=== PATIENT | male | born 1945 | race American Indian/Alaskan Native ===

== ENCOUNTER 2021-03-07 11:38 | Inpatient (IN) | payer MEDICARE, BC ==
[2021-03-07 12:32] LABS: Basophils % (Auto) 0.5 % (0.0-1.8); Eosinophils # (Auto) 0.8 K/mm3 (0.0-0.4); Eosinophils % (Auto) 10.5 % (0.0-4.3); Hematocrit 36.3 % (35.5-45.6); Hemoglobin 11.9 gm/dl (11.8-15.2); Lymphocytes # (Auto) 2.2 K/mm3 (1.2-5.4); Lymphocytes % (Auto) 27.9 % (13.4-35.0); Mean Corpuscular HGB Conc 33 % (32-34); Mean Corpuscular Volume 76 fl (84-94); Monocytes # (Auto) 0.8 K/mm3 (0.0-0.8); Monocytes % (Auto) 9.9 % (0.0-7.3); Platelet Count 367 K/mm3 (140-440)
[2021-03-07 12:33] LABS: Red Cell Distribution Width 21.3 % (13.2-15.2)
[2021-03-07 12:50] LABS: Alanine Aminotransferase 27 units/L (7-56); Albumin 2.8 g/dL (3.9-5); BUN/Creatinine Ratio 55; Blood Urea Nitrogen 44 mg/dL (9-20); Calcium 9.3 mg/dL (8.4-10.2); Hemolysis Index 2
--- NOTE | 2021-03-07 12:50 | XRay Report ---
CHEST 1 VIEW INDICATION: ams. COMPARISON: None. FINDINGS: Support devices: None. Heart: Normal. Lungs/Pleura: No acute pulmonary or pleural findings. IMPRESSION: 1. No acute findings. Signer Name: Cj Pascal MD Signed: 03/07/2021 12:46 PM Workstation Name: [id number]
[2021-03-07 13:01] LABS: Chol/HDL Ratio 2.73 %; HDL Cholesterol 26 mg/dL (40-59); LDL Cholesterol,Direct 36 mg/dL (50-130)
[2021-03-07 13:05] LABS: INR 0.99 (0.87-1.13)
[2021-03-07 13:06] LABS: Partial Thromboplastin Time 33.8 Sec. (24.2-36.6)
--- NOTE | 2021-03-07 13:08 | Emergency Department Report ---
ED Altered Mental Status HPI - General Chief Complaint: Altered Mental Status Stated Complaint: AMS Time Seen by Provider: 03/07/21 11:58 Source: patient Mode of arrival: Wheelchair Limitations: Physical Limitation - History of Present Illness Initial Comments: Patient is a 75-year-old gentleman who is presenting with altered mental status. 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 Patient through rehab has gotten to the point where he is approximately 80% recovered cognitively and is now sometimes sitting on the edge of the bed instead of being 100% bed and wheelchair dependent. Patient's son and brought him in today because over the last several days he seems to have declined in his mental status. Patient seems very confused. Patient has no complaints he denies any pain nausea vomiting diarrhea. Patient did seem to be somewhat confused about recent events and states that he he gets blood work done 6 times a day. MD Complaint: altered mental status Associated Symptoms: shortness of breath (mild secondary to positioning in his wheel chair). denies: chest pain, cough, diaphoresis, fever/chills, headaches, malaise, nausea/vomiting, rash, seizure - Related Data Allergies Allergy/AdvReac Type Severity Reaction Status Date / Time No Known Allergies Allergy Verified 03/07/21 11:48 ED Review of Systems ROS: Stated complaint: AMS Other details as noted in HPI Comment: All other systems reviewed and negative ED Physical Exam - General Limitations: Physical Limitation General appearance: alert, in no apparent distress - Head Head exam: Present: atraumatic, normocephalic - Eye Eye exam: Present: normal appearance, PERRL, EOMI - ENT ENT exam: Present: mucous membranes moist - Neck Neck exam: Present: normal inspection - Respiratory Respiratory exam: Present: normal lung sounds bilaterally. Absent: respiratory distress, wheezes, rales, rhonchi - Cardiovascular Cardiovascular Exam: Present: regular rate, normal rhythm, normal heart sounds. Absent: systolic murmur, diastolic murmur, rubs, gallop - GI/Abdominal GI/Abdominal exam: Present: soft, normal bowel sounds - Rectal Rectal exam: Present: deferred - Extremities Exam Extremities exam: Present: normal inspection - Back Exam Back exam: Present: normal inspection - Neurological Exam Neurological exam: Present: alert, altered (some confusion regarding short term memory), oriented X3 - Psychiatric Psychiatric exam: Present: normal affect, normal mood - Skin Skin exam: Present: warm, dry, intact, normal color. Absent: rash - Assessment Assessment Interval: Baseline - Level of Consciousness 1a. Level of Consciousness: alert/keenly responsive - LOC Questions 1b. LOC Questions: answers both correctly - LOC Command 1c. LOC Commands: performs tasks correctly - Best Gaze 2. Best Gaze: normal - Visual 3. Visual: no visual loss - Facial Palsy 4. Facial Palsy: normal symmetrical movement - Motor Arm 5a. Motor Arm Left: no drift 5b. Motor Arm Right: no drift - Motor Leg 6a. Motor Leg Left: no gravity effort 6b. Motor Leg Right: no gravity effort - Limb Ataxia 7. Limb Ataxia: absent - Sensory 8. Sensory: normal - Best Language 9. Best Language: no aphasia - Dysarthria 10. Dysarthria: normal - Extinction and Inattention 11. Extinction/Inattention: no abnormality - Scoring Total Score: 6 Stroke Severity: Moderate Stroke ED Course Vital Signs 03/07/21 11:47 Temperature 98.1 F Pulse Rate 91 H Respiratory 18 Rate Blood Pressure 133/63 [Right] O2 Sat by Pulse 99 Oximetry - Reevaluation(s) Reevaluation #1: 03/07/21 13:22 Patient with a slight drop in blood pressure after being moved from his wheelchair to the bed. Does not appear to be in any distress however blood pressure did drop to 98 systolic. Patient be started on IV hydration. Patient appears prerenal on his laboratory studies as well consistent with some dehydration. - Lab Data Result diagrams: 03/07/21 12:10 03/07/21 12:10 Lab Results 03/07/21 03/07/21 03/07/21 Range/Units 12:10 12:10 12:10 WBC 7.7 (4.5-11.0) K/mm3 RBC 4.80 (3.65-5.03) M/mm3 Hgb 11.9 (11.8-15.2) gm/dl Hct 36.3 (35.5-45.6) % MCV 76 L (84-94) fl MCH 25 L (28-32) pg MCHC 33 (32-34) % RDW 21.3 H (13.2-15.2) % Plt Count 367 (140-440) K/mm3 Lymph % (Auto) 27.9 (13.4-35.0) % [place] % (Auto) 9.9 H (0.0-7.3) % Eos % (Auto) 10.5 H (0.0-4.3) % Baso % (Auto) 0.5 (0.0-1.8) % Lymph # (Auto) 2.2 (1.2-5.4) K/mm3 [place] # (Auto) 0.8 (0.0-0.8) K/mm3 Eos # (Auto) 0.8 H (0.0-0.4) K/mm3 Baso # (Auto) 0.0 (0.0-0.1) K/mm3 Seg Neutrophils % 51.2 (40.0-70.0) % Seg Neutrophils # 4.0 (1.8-7.7) K/mm3 PT 13.6 (12.2-14.9) Sec. INR 0.99 (0.87-1.13) APTT 33.8 (24.2-36.6) Sec. Sodium (137-145) mmol/L Potassium (3.6-5.0) mmol/L Chloride (98-107) mmol/L Carbon Dioxide (22-30) mmol/L Anion Gap mmol/L BUN (9-20) mg/dL Creatinine (0.8-1.3) mg/dL Estimated GFR ml/min BUN/Creatinine Ratio % Glucose (75-100) mg/dL Lactic Acid 1.80 (0.7-2.0) mmol/L Calcium (8.4-10.2) mg/dL Total Bilirubin (0.1-1.2) mg/dL AST (5-40) units/L ALT (7-56) units/L Alkaline Phosphatase (35-129) units/L Ammonia (25-60) umol/L Troponin T (0.00-0.029) ng/mL Total Protein (6.3-8.2) g/dL Albumin (3.9-5) g/dL Albumin/Globulin Ratio % Triglycerides (2-149) mg/dL Cholesterol (50-199) mg/dL LDL Cholesterol Direct (50-130) mg/dL HDL Cholesterol (40-59) mg/dL Cholesterol/HDL Ratio % 03/07/21 03/07/21 Range/Units 12:10 12:10 WBC (4.5-11.0) K/mm3 RBC (3.65-5.03) M/mm3 Hgb (11.8-15.2) gm/dl Hct (35.5-45.6) % MCV (84-94) fl MCH (28-32) pg MCHC (32-34) % RDW (13.2-15.2) % Plt Count (140-440) K/mm3 Lymph % (Auto) (13.4-35.0) % [place] % (Auto) (0.0-7.3) % Eos % (Auto) (0.0-4.3) % Baso % (Auto) (0.0-1.8) % Lymph # (Auto) (1.2-5.4) K/mm3 [place] # (Auto) (0.0-0.8) K/mm3 Eos # (Auto) (0.0-0.4) K/mm3 Baso # (Auto) (0.0-0.1) K/mm3 Seg Neutrophils % (40.0-70.0) % Seg Neutrophils # (1.8-7.7) K/mm3 PT (12.2-14.9) Sec. INR (0.87-1.13) APTT (24.2-36.6) Sec. Sodium 136 L (137-145) mmol/L Potassium 4.6 (3.6-5.0) mmol/L Chloride 97.8 L (98-107) mmol/L Carbon Dioxide 27 (22-30) mmol/L Anion Gap 16 mmol/L BUN 44 H (9-20) mg/dL Creatinine 0.8 (0.8-1.3) mg/dL Estimated GFR > 60 ml/min BUN/Creatinine Ratio 55 % Glucose 119 H (75-100) mg/dL Lactic Acid (0.7-2.0) mmol/L Calcium 9.3 (8.4-10.2) mg/dL Total Bilirubin 0.40 (0.1-1.2) mg/dL AST 22 (5-40) units/L ALT 27 (7-56) units/L Alkaline Phosphatase 98 (35-129) units/L Ammonia 13.0 L (25-60) umol/L Troponin T 0.071 H (0.00-0.029) ng/mL Total Protein 8.1 (6.3-8.2) g/dL Albumin 2.8 L (3.9-5) g/dL Albumin/Globulin Ratio 0.5 % Triglycerides 103 (2-149) mg/dL Cholesterol 71 (50-199) mg/dL LDL Cholesterol Direct 36 L (50-130) mg/dL HDL Cholesterol 26 L (40-59) mg/dL Cholesterol/HDL Ratio 2.73 % - EKG Data -: EKG Interpreted by Me EKG shows normal: sinus rhythm, axis, intervals, QRS complexes, ST-T waves Rate: normal Interpretation: normal EKG 03/07/21 13:36 1333 - Radiology Data [facility] [address] [place] [address] XRay Report Signed Patient: MARGE PINEDA MR#: [id number] : 1945 Acct:[id number] Age/Sex: 75 / M ADM Date: 03/07/21 Loc: ED Attending Dr: Ordering Physician: FAUSTINO CRUZ MD Date of Service: 03/07/21 Procedure(s): XR chest 1V ap Accession Number(s): [id number] cc: FAUSTINO CRUZ MD Fluoro Time In Minutes: CHEST 1 VIEW INDICATION: ams. COMPARISON: None. FINDINGS: Support devices: None. Heart: Normal. Lungs/Pleura: No acute pulmonary or pleural findings. IMPRESSION: 1. No acute findings. 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 Patient does have a PEG tube in place. Here for altered mental status. Patient with some increased confusion over the last week. Patient found to be dehydrated is prerenal. Start IV hydration the patient will be admitted for observation. Critical care attestation.: If time is entered above; I have spent that time in minutes in the direct care of this critically ill patient, excluding procedure time. ED Disposition Clinical Impression: Altered mental status, Acute kidney injury, Dehydration Disposition: ADMITTED INPATIENT Is pt being admited?: Yes Does the pt Need Aspirin: No Condition: Stable Referrals: PRIMARY CARE, [Primary Care Provider] - 3-5 Days Time of Disposition: 13:39
[2021-03-07] MEDS ORDERED: SODIUM CHLORIDE 0.9% 1000 ML 1,000 ML IV ONE (13:09)
[2021-03-07 14:24] LABS: Bacteria,Urine 1+ /HPF (Negative); Bilirubin,Urine NEG (Negative); Blood,Urine NEG (Negative); Color,Urine Yellow (Yellow); Mucus,Urine FEW /HPF; Urobilinogen,Urine < 2.0 mg/dL (<2.0)
--- NOTE | 2021-03-07 14:42 | Cat Scan Report ---
CT BRAIN: 03/07/2021 INDICATION / CLINICAL INFORMATION: AMS. COMPARISON: None available. FINDINGS: BRAIN/INTRACRANIAL STRUCTURES: Unenhanced CT images of the brain demonstrate no evidence of acute int racranial abnormality. Ventricles and sulci are prominent in size, consistent with pronounced diffuse cerebral atrophy. There is no evidence of acute ischemic injury, hemorrhage, or mass. There are no abnormal extra-axial fluid collections. Chronic white matter hypoattenuation is present. There is evidence of old lacunar changes in left bas al ganglia. EXTRACRANIAL STRUCTURES: Unremarkable. IMPRESSION: No acute abnormality. Chronic and age-related changes. All CT scans at this location are performed using dose reduction to ALARA by means of automated expos ure control. Signer Name: Nicolas Rea MD Signed: 03/07/2021 2:38 PM Workstation Name: [id number]
[2021-03-07] MEDS ORDERED: ALLEGRA D FEEDTUBE SCH (15:15)
[2021-03-07] MEDS ORDERED: ACETAMINOPHEN 325 MG TAB PO PRN (15:27)
[2021-03-07] MEDS ORDERED: HYDROmorphone 1 MG/1 ML INJ IV PRN (15:27)
[2021-03-07] MEDS ORDERED: ONDANSETRON 4 MG/2 ML INJ IV PRN (15:27)
[2021-03-07] MEDS ORDERED: METOCLOPRAMIDE 10 MG/2 ML INJ IV PRN (15:27)
[2021-03-07] MEDS ORDERED: oxyCODONE /ACETAMINOPHEN 5-325MG TAB PO PRN (15:27)
[2021-03-07] MEDS ORDERED: allopurinoL 100 MG TAB PO SCH (15:30)
[2021-03-07] MEDS ORDERED: NON-FORMULARY EACH (Allopurinol 100 MG) PO SCH (15:30)
[2021-03-07] MEDS ORDERED: oxyCODONE /ACETAMINOPHEN 5-325MG TAB FEEDTUBE PRN (16:00)
[2021-03-07] MEDS ORDERED: LORATADINE/PSEUDOEPHEDRINE 10-240 MG TAB 24HR PO SCH (16:00)
[2021-03-07] MEDS ORDERED: ACETAMINOPHEN 325 MG/10.15 ML ORAL LIQD UNIT DOSE FEEDTUBE PRN (16:01)
--- NOTE | 2021-03-07 17:05 | History and Physical Report ---
History of Present Illness Date of examination: 03/07/21 Date of admission: 03/07/21 13:39 Chief complaint: Acute sensorium for 1 week History of present illness: Patient is a 75-year-old gentleman who is presenting with altered mental status. 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 Patient through rehab has gotten to the point where he is approximately 80% recovered cognitively and is now sometimes sitting on the edge of the bed instead of being 100% bed and wheelchair dependent. Patient's son and brought him in today because over the last several days he seems to have declined in his mental status. Patient seems very confused. Patient has no complaints he denies any pain nausea vomiting diarrhea. Patient did seem to be somewhat confused about recent events and states that he he gets blood work done 6 times a day. MD Complaint: altered mental status Associated Symptoms: shortness of breath (mild secondary to positioning in his wheel chair). denies: chest pain, cough, diaphoresis, fever/chills, headaches, malaise, nausea/vomiting, rash, seizure Past History Past Medical History: COPD, hypertension, hyperlipidemia, other (BPH, allergy rhinitis) Past Surgical History: Other Social history: lives with family, full code Family history: hypertension Medications and Allergies Allergies Allergy/AdvReac Type Severity Reaction Status Date / Time No Known Allergies Allergy Verified 03/07/21 11:48 Home Medications Medication Instructions Recorded Confirmed Last Taken Type Cherise-D 24 Hour Tablet 180 mg FEEDTUBE DAILY 03/07/21 03/07/21 03/07/21 History 180 AtorvaSTATin 40 mg FEEDTUBE QHS 03/07/21 03/07/21 03/07/21 History 40 mg Centrum Multivit-Mineral Liq 15 ml FEEDTUBE QDAY 03/07/21 03/07/21 03/07/21 History 15 ml Enoxaparin 30 mg FEEDTUBE QDAC 03/07/21 03/07/21 03/07/21 History 0.3 ml Fluticasone Propionate 50 mcg .ROUTE BID 03/07/21 03/07/21 03/07/21 History 50 mcg Ipratropium/Albuterol Sulfate 3 ml INHALATION PRN 03/07/21 03/07/21 Unknown History Nahid Packet 1 pack FEEDTUBE BID 03/07/21 03/07/21 03/07/21 History 1 Liquid Protein Fortifier 30 ml FEEDTUBE BID 03/07/21 03/07/21 03/07/21 History 30 ml Melatonin 3MG TAB 3 mg FEEDTUBE HS PRN 03/07/21 03/07/21 Unknown History Pantoprazole 40 mg FEEDTUBE QDAC 03/07/21 03/07/21 03/07/21 History 40 mg Probiotic 1 cap FEEDTUBE QDAY 03/07/21 03/07/21 03/07/21 History 1 Tamsulosin 0.4 mg FEEDTUBE QHS 03/07/21 03/07/21 03/07/21 History 0.4 mg Vitamin C 500 mg/15 ml Liquid 500 mg FEEDTUBE QAM 03/07/21 03/07/21 03/07/21 History 500 mg Zinc Sulfate 220 mg FEEDTUBE QAM 03/07/21 03/07/21 03/07/21 History 220 mg allopurinoL 100 mg FEEDTUBE QDAC 03/07/21 03/07/21 03/07/21 History 100 mg polyethylene glycoL 3350 17 gm FEEDTUBE PRN PRN 03/07/21 03/07/21 Unknown History Active Meds: Active Medications Acetaminophen (Acetaminophen 325 Mg/10.15 Ml Oral Liqd Unit Dose) 650 mg FEEDTUBE Q4H PRN PRN Reason: Pain, Mild (1-3) Allopurinol (Allopurinol 100 Mg Tab) 100 mg FEEDTUBE QDAY DIXIE Famotidine (Famotidine 20 Mg Tab) 20 mg FEEDTUBE BID DIXIE Hydromorphone HCl (Hydromorphone 1 Mg/1 Ml Inj) 0.5 mg IV Q3H PRN PRN Reason: Pain , Severe (7-10) Dextrose/Sodium Chloride (D5ns) 1,000 mls @ 75 mls/hr IV DIRECT DIXIE Metoclopramide HCl (Metoclopramide 10 Mg/2 Ml Inj) 10 mg IV Q6H PRN PRN Reason: Nausea And Vomiting Ondansetron HCl (Ondansetron 4 Mg/2 Ml Inj) 4 mg IV Q8H PRN PRN Reason: Nausea And Vomiting Oxycodone/Acetaminophen (Oxycodone /Acetaminophen 5-325mg Tab) 1 tab FEEDTUBE Q6H PRN PRN Reason: Pain, Moderate (4-6) Sodium Chloride (Sodium Chloride 0.9% 10 Ml Flush Syringe) 10 ml IV BID DIXIE Sodium Chloride (Sodium Chloride 0.9% 10 Ml Flush Syringe) 10 ml IV PRN PRN PRN Reason: LINE FLUSH Review of Systems All systems: negative Neurological: confusion, memory loss Exam - Constitutional Vitals: Temp Pulse Resp BP Pulse Ox 98.1 F 77 16 119/59 99 03/07/21 11:47 03/07/21 16:01 03/07/21 16:01 03/07/21 16:01 03/07/21 16:01 General appearance: Present: no acute distress, well-nourished - EENT Eyes: Present: PERRL ENT: hearing intact, clear oral mucosa - Neck Neck: Present: supple, normal ROM - Respiratory Respiratory effort: normal Respiratory: bilateral: CTA - Cardiovascular Heart rate: 78 Rhythm: regular Heart Sounds: Present: S1 & S2. Absent: rub, click - Extremities Extremities: no ischemia, pulses intact, pulses symmetrical, No edema Peripheral Pulses: within normal limits - Abdominal General gastrointestinal: Present: soft, non-tender, non-distended, normal bowel sounds Male genitourinary: Present: normal - Integumentary Integumentary: Present: clear, warm, dry - Musculoskeletal Musculoskeletal: gait normal, strength equal bilaterally - Psychiatric Psychiatric: appropriate mood/affect, other (Alert to person, not to place and time) - Neurologic Neurologic: CNII-XII intact, moves all extremities - Allied Health Allied health notes reviewed: nursing, case management HEART Score - HEART Score Troponin: Troponin T 0.071 ng/mL (0.00-0.029) H 03/07/21 12:10 Results - Labs CBC & Chem 7: 03/08/21 04:42 03/08/21 04:42 Labs: Laboratory Last Values WBC 7.7 K/mm3 (4.5-11.0) 03/07/21 12:10 RBC 4.80 M/mm3 (3.65-5.03) 03/07/21 12:10 Hgb 11.9 gm/dl (11.8-15.2) 03/07/21 12:10 Hct 36.3 % (35.5-45.6) 03/07/21 12:10 MCV 76 fl (84-94) L 03/07/21 12:10 MCH 25 pg (28-32) L 03/07/21 12:10 MCHC 33 % (32-34) 03/07/21 12:10 RDW 21.3 % (13.2-15.2) H 03/07/21 12:10 Plt Count 367 K/mm3 (140-440) 03/07/21 12:10 Lymph % (Auto) 27.9 % (13.4-35.0) 03/07/21 12:10 [place] % (Auto) 9.9 % (0.0-7.3) H 03/07/21 12:10 Eos % (Auto) 10.5 % (0.0-4.3) H 03/07/21 12:10 Baso % (Auto) 0.5 % (0.0-1.8) 03/07/21 12:10 Lymph # (Auto) 2.2 K/mm3 (1.2-5.4) 03/07/21 12:10 [place] # (Auto) 0.8 K/mm3 (0.0-0.8) 03/07/21 12:10 Eos # (Auto) 0.8 K/mm3 (0.0-0.4) H 03/07/21 12:10 Baso # (Auto) 0.0 K/mm3 (0.0-0.1) 03/07/21 12:10 Seg Neutrophils % 51.2 % (40.0-70.0) 03/07/21 12:10 Seg Neutrophils # 4.0 K/mm3 (1.8-7.7) 03/07/21 12:10 PT 13.6 Sec. (12.2-14.9) 03/07/21 12:10 INR 0.99 (0.87-1.13) 03/07/21 12:10 APTT 33.8 Sec. (24.2-36.6) 03/07/21 12:10 Sodium 136 mmol/L (137-145) L 03/07/21 12:10 Potassium 4.6 mmol/L (3.6-5.0) 03/07/21 12:10 Chloride 97.8 mmol/L (98-107) L 03/07/21 12:10 Carbon Dioxide 27 mmol/L (22-30) 03/07/21 12:10 Anion Gap 16 mmol/L 03/07/21 12:10 BUN 44 mg/dL (9-20) H 03/07/21 12:10 Creatinine 0.8 mg/dL (0.8-1.3) 03/07/21 12:10 Estimated GFR > 60 ml/min 03/07/21 12:10 BUN/Creatinine Ratio 55 % 03/07/21 12:10 Glucose 119 mg/dL (75-100) H 03/07/21 12:10 Lactic Acid 1.80 mmol/L (0.7-2.0) 03/07/21 12:10 Calcium 9.3 mg/dL (8.4-10.2) 03/07/21 12:10 Total Bilirubin 0.40 mg/dL (0.1-1.2) 03/07/21 12:10 AST 22 units/L (5-40) 03/07/21 12:10 ALT 27 units/L (7-56) 03/07/21 12:10 Alkaline Phosphatase 98 units/L (35-129) 03/07/21 12:10 Ammonia 13.0 umol/L (25-60) L 03/07/21 12:10 Troponin T 0.071 ng/mL (0.00-0.029) H 03/07/21 12:10 Total Protein 8.1 g/dL (6.3-8.2) 03/07/21 12:10 Albumin 2.8 g/dL (3.9-5) L 03/07/21 12:10 Albumin/Globulin Ratio 0.5 % 03/07/21 12:10 Triglycerides 103 mg/dL (2-149) 03/07/21 12:10 Cholesterol 71 mg/dL (50-199) 03/07/21 12:10 LDL Cholesterol Direct 36 mg/dL (50-130) L 03/07/21 12:10 HDL Cholesterol 26 mg/dL (40-59) L 03/07/21 12:10 Cholesterol/HDL Ratio 2.73 % 03/07/21 12:10 Urine Color Yellow (Yellow) 03/07/21 Unknown Urine Turbidity Slightly-cloudy (Clear) 03/07/21 Unknown Urine pH 7.0 (5.0-7.0) 03/07/21 Unknown Ur Specific [place] 1.016 (1.003-1.030) 03/07/21 Unknown Urine Protein 30 mg/dl mg/dL (Negative) 03/07/21 Unknown Urine Glucose (UA) Neg mg/dL (Negative) 03/07/21 Unknown Urine Ketones Neg mg/dL (Negative) 03/07/21 Unknown Urine Blood Neg (Negative) 03/07/21 Unknown Urine Nitrite Pos (Negative) 03/07/21 Unknown Urine Bilirubin Neg (Negative) 03/07/21 Unknown Urine Urobilinogen < 2.0 mg/dL (<2.0) 03/07/21 Unknown Ur Leukocyte Esterase Lg (Negative) 03/07/21 Unknown Urine WBC (Auto) 29.0 /HPF (0.0-6.0) H 03/07/21 Unknown Urine RBC (Auto) 9.0 /HPF (0.0-6.0) 03/07/21 Unknown Urine Bacteria (Auto) 1+ /HPF (Negative) 03/07/21 Unknown Urine Mucus Few /HPF 03/07/21 Unknown Short CBC 03/07/21 03/08/21 Range/Units 12:10 04:42 WBC 7.7 7.7 (4.5-11.0) K/mm3 Hgb 11.9 11.1 L (11.8-15.2) gm/dl Hct 36.3 34.3 L (35.5-45.6) % Plt Count 367 364 (140-440) K/mm3 BMP 03/07/21 03/08/21 12:10 04:42 Sodium 136 L 141 Potassium 4.6 4.2 Chloride 97.8 L 102.3 Carbon Dioxide 27 24 BUN 44 H 35 H Creatinine 0.8 0.9 Glucose 119 H 99 Calcium 9.3 9.7 Cardiac Enzymes 03/07/21 Range/Units 12:10 Troponin T 0.071 H (0.00-0.029) ng/mL Liver Function 03/07/21 03/08/21 Range/Units 12:10 04:42 Total Bilirubin 0.40 0.60 (0.1-1.2) mg/dL AST 22 20 (5-40) units/L ALT 27 23 (7-56) units/L Alkaline Phosphatase 98 97 (35-129) units/L Albumin 2.8 L 2.9 L (3.9-5) g/dL Urine 03/07/21 Range/Units Unknown Urine Color Yellow (Yellow) Urine pH 7.0 (5.0-7.0) Ur Specific [place] 1.016 (1.003-1.030) Urine Protein 30 mg/dl (Negative) mg/dL Urine Glucose (UA) Neg (Negative) mg/dL Assessment and Plan Advance Directives: Yes (Full code) Plan of care discussed with patient/family: Yes - Patient Problems (1) Acute encephalopathy Current Visit: Yes Status: Acute Plan to address problem: Patient has altered sensorium Neurology consult requested MRI brain in the a.m. 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 Since then there is some decline in his mental status (2) Acute kidney injury Current Visit: Yes Status: Acute Plan to address problem: IV Fluids for now Vasomotor Nephropathy (3) Hyponatremia Current Visit: Yes Status: Acute Plan to address problem: IV normal saline for now (4) COPD (chronic obstructive pulmonary disease) Current Visit: Yes Status: Chronic Qualifiers: COPD type: unspecified COPD Qualified Code(s): J44.9 - Chronic obstructive pulmonary disease, unspecified Plan to address problem: Nebulizer treatments on a as needed basis (5) BPH (benign prostatic hyperplasia) Current Visit: Yes Status: Chronic Qualifiers: Lower urinary tract symptom presence: symptoms present Plan to address problem: Continue tamsulosin (6) Hyperlipidemia Current Visit: Yes Status: Chronic Qualifiers: Hyperlipidemia type: mixed hyperlipidemia Qualified Code(s): E78.2 - Mixed hyperlipidemia Plan to address problem: Continue statins (7) DVT prophylaxis Current Visit: Yes Status: Acute Plan to address problem: On Heparin and GI prophylaxis
[2021-03-07] MEDS: cefTRIAXone/NS 1 GM/50 ML 1 GM/50 ML BAG IV SCH (22:53)
[2021-03-07] MEDS: FAMOTIDINE 20 MG TAB FEEDTUBE SCH (22:55)
[2021-03-08 06:16] LABS: Basophils % (Auto) 0.6 % (0.0-1.8); Eosinophils # (Auto) 0.6 K/mm3 (0.0-0.4); Eosinophils % (Auto) 7.7 % (0.0-4.3); Hematocrit 34.3 % (35.5-45.6); Hemoglobin 11.1 gm/dl (11.8-15.2); Lymphocytes # (Auto) 1.9 K/mm3 (1.2-5.4); Lymphocytes % (Auto) 24.5 % (13.4-35.0); Mean Corpuscular HGB Conc 33 % (32-34); Mean Corpuscular Volume 76 fl (84-94); Monocytes # (Auto) 0.9 K/mm3 (0.0-0.8); Monocytes % (Auto) 11.8 % (0.0-7.3); Platelet Count 364 K/mm3 (140-440); Red Blood Count 4.52 M/mm3 (3.65-5.03); Red Cell Distribution Width 21.4 % (13.2-15.2)
[2021-03-08 06:55] LABS: Alanine Aminotransferase 23 units/L (7-56); Albumin 2.9 g/dL (3.9-5); BUN/Creatinine Ratio 39; Blood Urea Nitrogen 35 mg/dL (9-20); Calcium 9.7 mg/dL (8.4-10.2); Hemolysis Index 0
[2021-03-08] MEDS: D5W/0.9% NACL 1,000 ML IV SCH ×2 (07:00→23:59)
[2021-03-08] MEDS ORDERED: ALBUTEROL SULFATE INHALATION PRN (07:25)
[2021-03-08] MEDS ORDERED: MELATONIN 3 MG FEEDTUBE PRN (07:25)
[2021-03-08] MEDS ORDERED: IPRATROPIUM INHALATION PRN (07:25)
[2021-03-08] MEDS ORDERED: POLYETHYLENE GLYCOL FEEDTUBE PRN (07:25)
[2021-03-08] MEDS ORDERED: ENOXAPARIN 30 MG SUB-Q SCH (07:30)
[2021-03-08] MEDS ORDERED: NON-FORMULARY EACH (Pantoprazole 40 MG) FEEDTUBE SCH (07:30)
--- NOTE | 2021-03-08 08:08 | Progress Note ---
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 titrate O2 sats to more than 90% (5) BPH (benign prostatic hyperplasia) Current Visit: Yes Status: Chronic Continue tamsulosin, supportive care (6) Hyperlipidemia Current Visit: Yes Status: Chronic Continue statins (7) superficial wounds; Current Visit: Yes Status: Chronic Consult wound care, wound cultures if needed (8) DVT prophylaxis Current Visit: Yes Status: Acute Subcu Lovenox and GI prophylaxis History Interval history: I seen and examined Mr. Octavio Herrera at the bedside this morning, He was talking to some nursing students who were in the room Patient is very pleasant, comfortable, alert awake oriented x3 Responding appropriately, no confusion or agitation He does not have any complaints Vital signs reviewed Hospitalist Physical - Constitutional Vitals: Temp Pulse Resp BP Pulse Ox 97.8 F 85 18 108/54 94 03/08/21 03:39 03/08/21 03:39 03/08/21 03:39 03/08/21 03:39 03/08/21 03:39 General appearance: Present: no acute distress, well-nourished - EENT Eyes: Present: PERRL, EOM intact - Neck Neck: Present: supple, normal ROM - Respiratory Respiratory effort: normal Respiratory: bilateral: diminished, negative: rales, rhonchi, wheezing - Cardiovascular Rhythm: regular Heart Sounds: Present: S1 & S2 - Extremities Extremities: no ischemia, abnormal (Chronic skin changes , superficial wounds in different stages of healing) - Abdominal General gastrointestinal: soft, non-tender, non-distended, normal bowel sounds - Integumentary Integumentary: Present: clear, warm - Psychiatric Psychiatric: appropriate mood/affect, cooperative - Neurologic Neurologic: moves all extremities HEART Score - HEART Score Troponin: Troponin T 0.071 ng/mL (0.00-0.029) H 03/07/21 12:10 Results - Labs CBC & Chem 7: 03/08/21 04:42 03/08/21 04:42 Labs: Laboratory Last Values WBC 7.7 K/mm3 (4.5-11.0) 03/08/21 04:42 RBC 4.52 M/mm3 (3.65-5.03) 03/08/21 04:42 Hgb 11.1 gm/dl (11.8-15.2) L 03/08/21 04:42 Hct 34.3 % (35.5-45.6) L 03/08/21 04:42 MCV 76 fl (84-94) L 03/08/21 04:42 MCH 25 pg (28-32) L 03/08/21 04:42 MCHC 33 % (32-34) 03/08/21 04:42 RDW 21.4 % (13.2-15.2) H 03/08/21 04:42 Plt Count 364 K/mm3 (140-440) 03/08/21 04:42 Lymph % (Auto) 24.5 % (13.4-35.0) 03/08/21 04:42 [place] % (Auto) 11.8 % (0.0-7.3) H 03/08/21 04:42 Eos % (Auto) 7.7 % (0.0-4.3) H 03/08/21 04:42 Baso % (Auto) 0.6 % (0.0-1.8) 03/08/21 04:42 Lymph # (Auto) 1.9 K/mm3 (1.2-5.4) 03/08/21 04:42 [place] # (Auto) 0.9 K/mm3 (0.0-0.8) H 03/08/21 04:42 Eos # (Auto) 0.6 K/mm3 (0.0-0.4) H 03/08/21 04:42 Baso # (Auto) 0.0 K/mm3 (0.0-0.1) 03/08/21 04:42 Seg Neutrophils % 55.4 % (40.0-70.0) 03/08/21 04:42 Seg Neutrophils # 4.3 K/mm3 (1.8-7.7) 03/08/21 04:42 PT 13.6 Sec. (12.2-14.9) 03/07/21 12:10 INR 0.99 (0.87-1.13) 03/07/21 12:10 APTT 33.8 Sec. (24.2-36.6) 03/07/21 12:10 Sodium 141 mmol/L (137-145) 03/08/21 04:42 Potassium 4.2 mmol/L (3.6-5.0) 03/08/21 04:42 Chloride 102.3 mmol/L (98-107) 03/08/21 04:42 Carbon Dioxide 24 mmol/L (22-30) 03/08/21 04:42 Anion Gap 19 mmol/L 03/08/21 04:42 BUN 35 mg/dL (9-20) H 03/08/21 04:42 Creatinine 0.9 mg/dL (0.8-1.3) 03/08/21 04:42 Estimated GFR > 60 ml/min 03/08/21 04:42 BUN/Creatinine Ratio 39 % 03/08/21 04:42 Glucose 99 mg/dL (75-100) 03/08/21 04:42 Hemoglobin A1c 6.8 % (4-6) H 03/08/21 04:42 Lactic Acid 1.80 mmol/L (0.7-2.0) 03/07/21 12:10 Calcium 9.7 mg/dL (8.4-10.2) 03/08/21 04:42 Total Bilirubin 0.60 mg/dL (0.1-1.2) 03/08/21 04:42 AST 20 units/L (5-40) 03/08/21 04:42 ALT 23 units/L (7-56) 03/08/21 04:42 Alkaline Phosphatase 97 units/L (35-129) 03/08/21 04:42 Ammonia 13.0 umol/L (25-60) L 03/07/21 12:10 Troponin T 0.071 ng/mL (0.00-0.029) H 03/07/21 12:10 Total Protein 8.0 g/dL (6.3-8.2) 03/08/21 04:42 Albumin 2.9 g/dL (3.9-5) L 03/08/21 04:42 Albumin/Globulin Ratio 0.6 % 03/08/21 04:42 Triglycerides 103 mg/dL (2-149) 03/07/21 12:10 Cholesterol 71 mg/dL (50-199) 03/07/21 12:10 LDL Cholesterol Direct 36 mg/dL (50-130) L 03/07/21 12:10 HDL Cholesterol 26 mg/dL (40-59) L 03/07/21 12:10 Cholesterol/HDL Ratio 2.73 % 03/07/21 12:10 Urine Color Yellow (Yellow) 03/07/21 Unknown Urine Turbidity Slightly-cloudy (Clear) 03/07/21 Unknown Urine pH 7.0 (5.0-7.0) 03/07/21 Unknown Ur Specific [place] 1.016 (1.003-1.030) 03/07/21 Unknown Urine Protein 30 mg/dl mg/dL (Negative) 03/07/21 Unknown Urine Glucose (UA) Neg mg/dL (Negative) 03/07/21 Unknown Urine Ketones Neg mg/dL (Negative) 03/07/21 Unknown Urine Blood Neg (Negative) 03/07/21 Unknown Urine Nitrite Pos (Negative) 03/07/21 Unknown Urine Bilirubin Neg (Negative) 03/07/21 Unknown Urine Urobilinogen < 2.0 mg/dL (<2.0) 03/07/21 Unknown Ur Leukocyte Esterase Lg (Negative) 03/07/21 Unknown Urine WBC (Auto) 29.0 /HPF (0.0-6.0) H 03/07/21 Unknown Urine RBC (Auto) 9.0 /HPF (0.0-6.0) 03/07/21 Unknown Urine Bacteria (Auto) 1+ /HPF (Negative) 03/07/21 Unknown Urine Mucus Few /HPF 03/07/21 Unknown [place]/IV: Voiding Method Indwelling Catheter Active Medications - Current Medications Current Medications: Generic Name Dose Route Start Last Admin Trade Name Freq PRN Reason Stop Dose Admin Acetaminophen 650 mg 03/07/21 16:01 Acetaminophen 325 Mg/10.15 Ml Oral Liqd Unit Dose FEEDTUBE Q4H PRN Pain, Mild (1-3) Allopurinol 100 mg 03/08/21 10:00 Allopurinol 100 Mg Tab FEEDTUBE QDAY DIXIE Famotidine 20 mg 03/07/21 22:00 03/07/21 22:55 Famotidine 20 Mg Tab FEEDTUBE 20 mg BID DIXIE Administration Hydromorphone HCl 0.5 mg 03/07/21 15:27 Hydromorphone 1 Mg/1 Ml Inj IV Q3H PRN Pain , Severe (7-10) Dextrose/Sodium Chloride 1,000 mls @ 75 mls/hr 03/07/21 16:00 D5ns IV DIRECT DIXIE Ceftriaxone Sodium 1 gm in 50 mls @ 100 mls/hr 03/07/21 17:00 03/07/21 22:53 Rocephin/Ns 1 Gm/50 Ml IV 100 mls/hr Q24H DIXIE Administration Protocol Metoclopramide HCl 10 mg 03/07/21 15:27 03/07/21 23:02 Metoclopramide 10 Mg/2 Ml Inj IV 10 mg Q6H PRN Administration Nausea And Vomiting Miscellaneous Medication 40 mg 03/08/21 22:00 Atorvastatin FEEDTUBE QHS DIXIE Miscellaneous Medication 30 mg 03/08/21 07:30 Enoxaparin SUB-Q QDAC DIXIE Miscellaneous Medication 50 mcg 03/08/21 10:00 Fluticasone Propionate .ROUTE BID DIXIE Miscellaneous Medication 3 ml 03/08/21 07:25 Ipratropium/Albuterol Sulfate INHALATION PRN PRN Wheezing Miscellaneous Medication 1 pack 03/08/21 10:00 Nahid Packet FEEDTUBE BID DIXIE Miscellaneous Medication 30 ml 03/08/21 10:00 Liquid Protein Fortifier FEEDTUBE BID DIXIE Miscellaneous Medication 3 mg 03/08/21 07:25 Melatonin 3mg Tab FEEDTUBE HS PRN Insomnia Miscellaneous Medication 40 mg 03/08/21 07:30 Pantoprazole FEEDTUBE QDAC DIXIE Miscellaneous Medication 17 gm 03/08/21 07:25 Polyethylene Glycol 3350 FEEDTUBE PRN PRN Constipation Miscellaneous Medication 1 cap 03/08/21 10:00 Probiotic FEEDTUBE QDAY DIXIE Miscellaneous Medication 0.4 mg 03/08/21 22:00 Tamsulosin FEEDTUBE QHS DIXIE Ondansetron HCl 4 mg 03/07/21 15:27 Ondansetron 4 Mg/2 Ml Inj IV Q8H PRN Nausea And Vomiting Oxycodone/Acetaminophen 1 tab 03/07/21 16:00 Oxycodone /Acetaminophen 5-325mg Tab FEEDTUBE Q6H PRN Pain, Moderate (4-6) Sodium Chloride 10 ml 03/07/21 22:00 03/07/21 22:55 Sodium Chloride 0.9% 10 Ml Flush Syringe IV 10 ml BID DIXIE Administration Sodium Chloride 10 ml 03/07/21 15:27 Sodium Chloride 0.9% 10 Ml Flush Syringe IV PRN PRN LINE FLUSH
--- NOTE | 2021-03-08 09:14 | Consultation ---
History of Present Illness Consult date: 03/08/21 Reason for Consult: Encephalopathy for a week , Hx of coxsackie encephalitis a year back History of present illness: Acute sensorium for 1 week History of present illness: Patient is a 75-year-old gentleman who is presenting with altered mental status. 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 Patient through rehab has gotten to the point where he is approximately 80% recovered cognitively and is now sometimes sitting on the edge of the bed instead of being 100% bed and wheelchair dependent. Patient's son and brought him in today because over the last several days he seems to have declined in his mental status. Patient seems very confused. Patient has no complaints he denies any pain nausea vomiting diarrhea. Patient did seem to be somewhat confused about recent events and states that he he gets blood work done 6 times a day. MD Complaint: altered mental status Associated Symptoms: shortness of breath (mild secondary to positioning in his wheel chair). denies: chest pain, cough, diaphoresis, fever/chills, headaches, malaise, nausea/vomiting, rash, seizure Past History Past Medical History: COPD, hypertension, hyperlipidemia, other (BPH, allergy rhinitis) Past Surgical History: Other Social history: lives with family, full code Family history: hypertension Medications and Allergies Allergies Allergy/AdvReac Type Severity Reaction Status Date / Time No Known Allergies Allergy Verified 03/07/21 11:48 Home Medications Medication Instructions Recorded Confirmed Last Taken Type Cherise-D 24 Hour Tablet 180 mg FEEDTUBE DAILY 03/07/21 03/07/21 03/07/21 Hist ory 180 AtorvaSTATin 40 mg FEEDTUBE QHS 03/07/21 03/07/21 03/07/21 History 40 mg Centrum Multivit-Mineral Liq 15 ml FEEDTUBE QDAY 03/07/21 03/07/21 03/07/21 History 15 ml Enoxaparin 30 mg FEEDTUBE QDAC 03/07/21 03/07/21 03/07/21 History 0.3 ml Fluticasone Propionate 50 mcg .ROUTE BID 03/07/21 03/07/21 03/07/21 History 50 mcg Ipratropium/Albuterol Sulfate 3 ml INHALATION PRN 03/07/21 03/07/21 Unknown History Nahid Packet 1 pack FEEDTUBE BID 03/07/21 03/07/21 03/07/21 History 1 Liquid Protein Fortifier 30 ml FEEDTUBE BID 03/07/21 03/07/21 03/07/21 History 30 ml Melatonin 3MG TAB 3 mg FEEDTUBE HS PRN 03/07/21 03/07/21 Unknown History Pantoprazole 40 mg FEEDTUBE QDAC 03/07/21 03/07/21 03/07/21 History 40 mg Probiotic 1 cap FEEDTUBE QDAY 03/07/21 03/07/21 03/07/21 History 1 Tamsulosin 0.4 mg FEEDTUBE QHS 03/07/21 03/07/21 03/07/21 History 0.4 mg Vitamin C 500 mg/15 ml Liquid 500 mg FEEDTUBE QAM 03/07/21 03/07/21 03/07/21 History 500 mg Zinc Sulfate 220 mg FEEDTUBE QAM 03/07/21 03/07/21 03/07/21 History 220 mg allopurinoL 100 mg FEEDTUBE QDAC 03/07/21 03/07/21 03/07/21 History 100 mg polyethylene glycoL 3350 17 gm FEEDTUBE PRN PRN 03/07/21 03/07/21 Unknown History Active Meds: Active Medications Acetaminophen (Acetaminophen 325 Mg/10.15 Ml Oral Liqd Unit Dose) 650 mg FEEDTUBE Q4H PRN PRN Reason: Pain, Mild (1-3) Allopurinol (Allopurinol 100 Mg Tab) 100 mg FEEDTUBE QDAY DIXIE Famotidine (Famotidine 20 Mg Tab) 20 mg FEEDTUBE BID DIXIE Hydromorphone HCl (Hydromorphone 1 Mg/1 Ml Inj) 0.5 mg IV Q3H PRN PRN Reason: Pain , Severe (7-10) Dextrose/Sodium Chloride (D5ns) 1,000 mls @ 75 mls/hr IV DIRECT DIXIE Metoclopramide HCl (Metoclopramide 10 Mg/2 Ml Inj) 10 mg IV Q6H PRN PRN Reason: Nausea And Vomiting Ondansetron HCl (Ondansetron 4 Mg/2 Ml Inj) 4 mg IV Q8H PRN PRN Reason: Nausea And Vomiting Oxycodone/Acetaminophen (Oxycodone /Acetaminophen 5-325mg Tab) 1 tab FEEDTUBE Q6H PRN PRN Reason: Pain, Moderate (4-6) Sodium Chloride (Sodium Chloride 0.9% 10 Ml Flush Syringe) 10 ml IV BID DIXIE Sodium Chloride (Sodium Chloride 0.9% 10 Ml Flush Syringe) 10 ml IV PRN PRN PRN Reason: LINE FLUSH Review of Systems All systems: negative Neurological: confusion, memory loss Past History Past Medical History: COPD, hypertension, hyperlipidemia, other (BPH, allergy rhinitis) Past Surgical History: Other Social history: lives with family, full code Family history: hypertension Medications and Allergies Allergies Allergy/AdvReac Type Severity Reaction Status Date / Time No Known Allergies Allergy Verified 03/07/21 11:48 Home Medications Medication Instructions Recorded Confirmed Last Taken Type Cherise-D 24 Hour Tablet 180 mg FEEDTUBE DAILY 03/07/21 03/07/21 03/07/21 History 180 AtorvaSTATin 40 mg FEEDTUBE QHS 03/07/21 03/07/21 03/07/21 History 40 mg Centrum Multivit-Mineral Liq 15 ml FEEDTUBE QDAY 03/07/21 03/07/21 03/07/21 History 15 ml Enoxaparin 30 mg FEEDTUBE QDAC 03/07/21 03/07/21 03/07/21 History 0.3 ml Fluticasone Propionate 50 mcg .ROUTE BID 03/07/21 03/07/21 03/07/21 History 50 mcg Ipratropium/Albuterol Sulfate 3 ml INHALATION PRN 03/07/21 03/07/21 Unknown History Nahid Packet 1 pack FEEDTUBE BID 03/07/21 03/07/21 03/07/21 History 1 Liquid Protein Fortifier 30 ml FEEDTUBE BID 03/07/21 03/07/21 03/07/21 History 30 ml Melatonin 3MG TAB 3 mg FEEDTUBE HS PRN 03/07/21 03/07/21 Unknown History Pantoprazole 40 mg FEEDTUBE QDAC 03/07/21 03/07/21 03/07/21 History 40 mg Probiotic 1 cap FEEDTUBE QDAY 03/07/21 03/07/21 03/07/21 History 1 Tamsulosin 0.4 mg FEEDTUBE QHS 03/07/21 03/07/21 03/07/21 History 0.4 mg Vitamin C 500 mg/15 ml Liquid 500 mg FEEDTUBE QAM 03/07/21 03/07/21 03/07/21 History 500 mg Zinc Sulfate 220 mg FEEDTUBE QAM 03/07/21 03/07/21 03/07/21 History 220 mg allopurinoL 100 mg FEEDTUBE QDAC 03/07/21 03/07/21 03/07/21 History 100 mg polyethylene glycoL 3350 17 gm FEEDTUBE PRN PRN 03/07/21 03/07/21 Unknown History Active Meds: Active Medications Acetaminophen (Acetaminophen 325 Mg/10.15 Ml Oral Liqd Unit Dose) 650 mg FEEDTUBE Q4H PRN PRN Reason: Pain, Mild (1-3) Allopurinol (Allopurinol 100 Mg Tab) 100 mg FEEDTUBE QDAY DIXIE Famotidine (Famotidine 20 Mg Tab) 20 mg FEEDTUBE BID DIXIE Last Admin: 03/07/21 22:55 Dose: 20 mg Documented by: Hydromorphone HCl (Hydromorphone 1 Mg/1 Ml Inj) 0.5 mg IV Q3H PRN PRN Reason: Pain , Severe (7-10) Dextrose/Sodium Chloride (D5ns) 1,000 mls @ 75 mls/hr IV DIRECT DIXIE Ceftriaxone Sodium (Rocephin/Ns 1 Gm/50 Ml) 1 gm in 50 mls @ 100 mls/hr IV Q24H DIXIE; Protocol Last Admin: 03/07/21 22:53 Dose: 100 mls/hr Documented by: Metoclopramide HCl (Metoclopramide 10 Mg/2 Ml Inj) 10 mg IV Q6H PRN PRN Reason: Nausea And Vomiting Last Admin: 03/07/21 23:02 Dose: 10 mg Documented by: Miscellaneous Medication (Atorvastatin) 40 mg FEEDTUBE QHS DIXIE Miscellaneous Medication (Enoxaparin) 30 mg SUB-Q QDAC DIXIE Miscellaneous Medication (Fluticasone Propionate) 50 mcg .ROUTE BID DIXIE Miscellaneous Medication (Ipratropium/Albuterol Sulfate) 3 ml INHALATION PRN PRN PRN Reason: Wheezing Miscellaneous Medication (Nahid Packet) 1 pack FEEDTUBE BID DIXIE Miscellaneous Medication (Liquid Protein Fortifier) 30 ml FEEDTUBE BID DIXIE Miscellaneous Medication (Melatonin 3mg Tab) 3 mg FEEDTUBE HS PRN PRN Reason: Insomnia Miscellaneous Medication (Pantoprazole) 40 mg FEEDTUBE QDAC DIXIE Miscellaneous Medication (Polyethylene Glycol 3350) 17 gm FEEDTUBE PRN PRN PRN Reason: Constipation Miscellaneous Medication (Probiotic) 1 cap FEEDTUBE QDAY [facility] Miscellaneous Medication (Tamsulosin) 0.4 mg FEEDTUBE QHS DIXIE Ondansetron HCl (Ondansetron 4 Mg/2 Ml Inj) 4 mg IV Q8H PRN PRN Reason: Nausea And Vomiting Oxycodone/Acetaminophen (Oxycodone /Acetaminophen 5-325mg Tab) 1 tab FEEDTUBE Q6H PRN PRN Reason: Pain, Moderate (4-6) Sodium Chloride (Sodium Chloride 0.9% 10 Ml Flush Syringe) 10 ml IV BID [facility] Last Admin: 03/07/21 22:55 Dose: 10 ml Documented by: Sodium Chloride (Sodium Chloride 0.9% 10 Ml Flush Syringe) 10 ml IV PRN PRN PRN Reason: LINE FLUSH Physical Examination - Vital Signs Vital Signs: Vital Signs Temp Pulse Resp BP Pulse Ox 98.1 F 91 H 18 133/63 99 03/07/21 11:47 03/07/21 11:47 03/07/21 11:47 03/07/21 11:47 03/07/21 11:47 - Constitutional General appearance: comfortable - EENT EENT: Present: PERRL, mucous membranes moist - Respiratory Respiratory: Present: chest non-tender, lungs clear, rhonchi - Cardiovascular Cardiovascular: Present: regular rate, normal S1, normal S2 Extremities: Present: chronic venous stasis change, non-pitting edema - Gastrointestinal Gastrointestinal: Present: normoactive bowel sounds - Integumentary Integumentary: Present: normal - Neurologic Cranial nerve examination: PERRL, EOMI, intact Speech examination: intact Sensorimotor examination: other (slight wasting interossei , with action tremor and weakness lower extremities3=/5 planter is down , reflexes are suppressed ) - Psychiatric Psychiatric: Present: other (alert oriented to place and date and birthdate knows president name and hospital name.) Results - Laboratory Findings CBC and BMP: 03/08/21 04:42 03/08/21 04:42 Abnormal Lab Findings: Abnormal Labs 03/07/21 03/07/2121 12:10 12:10 12:10 Hgb Hct MCV 76 L MCH 25 L RDW 21.3 H [place] % (Auto) 9.9 H Eos % (Auto) 10.5 H [place] # (Auto) Eos # (Auto) 0.8 H Sodium 136 L Chloride 97.8 L BUN 44 H Glucose 119 H Hemoglobin A1c Ammonia 13.0 L Troponin T 0.071 H Albumin 2.8 L LDL Cholesterol Direct 36 L HDL Cholesterol 26 L Urine WBC (Auto) 03/07/21 03/08/21 03/08/21 Unknown 04:42 04:42 Hgb 11.1 L Hct 34.3 L MCV 76 L MCH 25 L RDW 21.4 H [place] % (Auto) 11.8 H Eos % (Auto) 7.7 H [place] # (Auto) 0.9 H Eos # (Auto) 0.6 H Sodium Chloride BUN 35 H Glucose Hemoglobin A1c Ammonia Troponin T Albumin 2.9 L LDL Cholesterol Direct HDL Cholesterol Urine WBC (Auto) 29.0 H 03/08/21 04:42 Hgb Hct MCV MCH RDW [place] % (Auto) Eos % (Auto) [place] # (Auto) Eos # (Auto) Sodium Chloride BUN Glucose Hemoglobin A1c 6.8 H Ammonia Troponin T Albumin LDL Cholesterol Direct HDL Cholesterol Urine WBC (Auto) Assessment and Plan Assessment and Plan Advance Directives: Yes (Full code) Plan of care discussed with patient/family: Yes - Patient Problems # Acute encephalopathy # diffuse weakness and tremor -Patient has altered sensorium -MRI brain is pending -IV fluids for now -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 -Since then there is some decline in his mental status he is currently alert and orientedX3 # diffuse weakness and tremor - he is with hx of encephalitis -he is bed ridden -Suggest MRI brain and neck w gd # LEs possible static ulcer r/o infection # Acute kidney injury -IV Fluids for now -Vasomotor Nephropathy # Hyponatremia -IV normal saline for now # COPD (chronic obstructive pulmonary disease) -Nebulizer treatments on a as needed basis # BPH (benign prostatic hyperplasia) -Continue tamsulosin # Hyperlipidemia -Continue statins # DVT prophylaxis -On Heparin and GI prophylaxis PLAN 1-MRI brain and neck with gd 2- DVt prophylaxis 3- lower extremity ulcer r/o dvt r/o infection will follow
[2021-03-08] MEDS ORDERED: FLUTICASONE PROPIONATE 50 MCG SCH (10:00)
[2021-03-08] MEDS ORDERED: PROTEIN FORTIFIER FEEDTUBE SCH (10:00)
[2021-03-08] MEDS ORDERED: JUVEN FEEDTUBE SCH (10:00)
[2021-03-08] MEDS ORDERED: PANTOPRAZOLE 40 MG TAB PO SCH (10:00)
[2021-03-08] MEDS ORDERED: POLYETHYLENE GLYCOL 3350 17 GM POWDER PO PRN (10:00)
[2021-03-08] MEDS: allopurinoL 100 MG TAB FEEDTUBE SCH (10:51)
[2021-03-08] MEDS: FLUTICASONE PROPIONATE NASAL SPRAY 16 GM NS SCH ×2 (10:52→21:16)
[2021-03-08] MEDS: FAMOTIDINE 20 MG TAB FEEDTUBE SCH (10:52)
[2021-03-08] MEDS: ENOXAPARIN 40 MG/0.4 ML INJ SUB-Q SCH (10:52)
--- NOTE | 2021-03-08 11:47 | Electrocardiograph Report ---
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
[2021-03-08] MEDS ORDERED: ALBUTEROL 2.5 MG/3 ML NEBU IH PRN (12:00)
[2021-03-08] MEDS: cefTRIAXone/NS 1 GM/50 ML 1 GM/50 ML BAG IV SCH (16:38)
[2021-03-08] MEDS ORDERED: SODIUM BICARBONATE 325 MG TAB FEEDTUBE PRN (18:23)
[2021-03-08] MEDS ORDERED: LIPASE 10,500/PROTEASE 25,000/AMYLASE 43,750 (UNITS) DR CAP FEEDTUBE PRN (18:23)
[2021-03-08] MEDS ORDERED: SIMPLE SYRUP 15 ML FEEDTUBE PRN ×2 (18:23)
[2021-03-08] MEDS: TAMSULOSIN 0.4 MG CAP PO SCH (21:13)
[2021-03-08] MEDS ORDERED: MELATONIN 5 MG TAB PO PRN (22:00)
[2021-03-08] MEDS ORDERED: NON-FORMULARY EACH (Tamsulosin 0.4 MG) FEEDTUBE SCH (22:00)
[2021-03-08] MEDS ORDERED: NON-FORMULARY EACH (Atorvastatin 40 MG) FEEDTUBE SCH (22:00)
[2021-03-09 05:57] LABS: Basophils # (Auto) 0.1 K/mm3 (0.0-0.1); Basophils % (Auto) 1.2 % (0.0-1.8); Eosinophils # (Auto) 0.9 K/mm3 (0.0-0.4); Eosinophils % (Auto) 14.7 % (0.0-4.3); Hematocrit 31.3 % (35.5-45.6); Hemoglobin 10.2 gm/dl (11.8-15.2); Lymphocytes # (Auto) 2.2 K/mm3 (1.2-5.4); Lymphocytes % (Auto) 34.9 % (13.4-35.0); Mean Corpuscular HGB Conc 33 % (32-34); Mean Corpuscular Volume 76 fl (84-94); Monocytes # (Auto) 0.8 K/mm3 (0.0-0.8); Monocytes % (Auto) 12.9 % (0.0-7.3); Platelet Count 325 K/mm3 (140-440)
[2021-03-09 06:10] LABS: Red Cell Distribution Width 20.9 % (13.2-15.2)
[2021-03-09 06:21] LABS: BUN/Creatinine Ratio 31; Blood Urea Nitrogen 25 mg/dL (9-20); Calcium 8.8 mg/dL (8.4-10.2); Hemolysis Index 7
--- NOTE | 2021-03-09 08:25 | Magnetic Resonance Report ---
MR brain wo con INDICATION / CLINICAL INFORMATION: 75 years Male; Severe encephalopathy. TECHNIQUE: Multiplanar, multisequence MR images of the brain were obtained. COMPARISON: None available. FINDINGS: BRAIN / INTRACRANIAL CONTENTS: There is mild to moderate cerebral white matter disease most notably i nvolving the periventricular regions and most consistent with microvascular angiopathy. The diffusion imaging reveals no evidence of acute infarction. There is also mild to moderate cerebral atrophy most notably involving the temporal lobes including t he hippocampi. There is also associated mild prominence of the ventricular system. No extra-axial flu id collections or significant mass effect is identified. CRANIOCERVICAL JUNCTION: No significant abnormality. VASCULAR FLOW-VOIDS: No significant abnormality. ORBITS: No significant abnormality of visualized orbits. SINUSES / MASTOIDS: There is mild mucosal thickening involving the left ethmoid air cells. An effusio n is noted within the left mastoid air cells. ADDITIONAL FINDINGS: None. IMPRESSION: 1. 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 Signer Name: Chino Varghese MD Signed: 03/09/2021 8:21 AM Workstation Name: [id number]
--- NOTE | 2021-03-09 10:28 | Magnetic Resonance Report ---
MRI cervical spine without contrast INDICATION: Myelopathy with weakness TECHNIQUE: Axial sagittal images FINDINGS: Discogenic degenerative changes seen throughout spine. The craniocervical junction appears normal. No definite cord signal abnormality. C2-C3: Posterior disc osteophyte with uncovertebral degenerative change.. No severe neuroforaminal na rrowing. C3-C4: Endplate change with posterior disc osteophyte and uncovertebral degenerative change. Moderate to severe canal narrowing and neuroforaminal narrowing. C4-C5: Disc desiccation with posterior disc osteophyte asymmetric to the right. Severe right neurofor aminal narrowing. Moderate to severe canal narrowing. C5-C6: Disc desiccation with posterior disc osteophyte. Flattening the canal and cord with mild canal narrowing. Mild neuroforaminal narrowing. C6-C7: Disc desiccation posterior disc osteophyte and uncovertebral degenerative change. Mild left an d moderate right neuroforaminal narrowing. C7-T1: Posterior disc osteophyte asymmetric to the right with moderate to severe right neuroforaminal narrowing. IMPRESSION: Multilevel discogenic degenerative change. Please see above level by level description. Signer Name: David Shea MD Signed: 03/09/2021 10:24 AM Workstation Name: [email or web address]
--- NOTE | 2021-03-09 10:31 | Magnetic Resonance Report ---
MR brain w con, MR brain wo con INDICATION / CLINICAL INFORMATION: progressive LEs weakness and frequent fall. TECHNIQUE: Multiplanar, multisequence MR images of the brain were obtained. COMPARISON: CT head from 03/07/2021 FINDINGS: INTRACRANIAL: No restricted diffusion. No hemorrhage. Ventricular caliber is normal. No extra-axial c ollection. No mass. No herniation. Generalized atrophy. Periventricular and centrum semiovale T2 whi te matter hyperintensities most consistent with sequela of chronic microvascular disease. Major intr acranial vascular flow voids are preserved. No abnormal enhancement. ORBITS: No significant abnormality of visualized orbits. SINUSES / MASTOIDS: Unchanged small left mastoid effusion. Otherwise paranasal sinuses and right mast oid air cells are essentially clear. ADDITIONAL FINDINGS: None. IMPRESSION: 1. No acute infarction. No acute findings. 2. Senescent changes. Signer Name: Drew Baeza MD Signed: 03/09/2021 10:26 AM Workstation Name: [id number]
--- NOTE | 2021-03-09 10:55 | Progress Note ---
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 titrate O2 sats to more than 90% --BPH (benign prostatic hyperplasia) Current Visit: Yes Status: Chronic Continue tamsulosin, supportive care -- Hyperlipidemia Current Visit: Yes Status: Chronic Continue statins -- superficial wounds; Current Visit: Yes Status: Chronic Consult wound care, wound cultures if needed --DVT prophylaxis Current Visit: Yes Status: Acute Subcu Lovenox and GI prophylaxis 03/08/2021; patient is more alert and awake responding appropriately No distress, no confusion or agitation, neurology evaluation noted Neuro work-up is in progress 03/09/2021; Nurse reports that patient is little agitated and confused this morning MRI brain, MRI neck scheduled for today Neurology following History Interval history: I have seen and examined the patient at the bedside Patient's chart and medications reviewed Nurse reports that patient was slightly irritated and agitated this morning Patient has no new complaints Hospitalist Physical - Constitutional Vitals: Temp Pulse Resp BP Pulse Ox 98.0 F 74 18 117/59 97 03/09/21 07:52 03/09/21 07:52 03/09/21 07:52 03/09/21 07:52 03/09/21 07:52 General appearance: Present: no acute distress, well-nourished - EENT Eyes: Present: PERRL, EOM intact - Neck Neck: Present: supple, normal ROM - Respiratory Respiratory effort: normal Respiratory: bilateral: diminished, negative: rales, rhonchi, wheezing - Cardiovascular Rhythm: regular Heart Sounds: Present: S1 & S2 - Extremities Extremities: no ischemia, No edema - Abdominal General gastrointestinal: soft, non-tender, non-distended, normal bowel sounds - Integumentary Integumentary: Present: clear, warm - Psychiatric Psychiatric: appropriate mood/affect, cooperative - Neurologic Neurologic: moves all extremities HEART Score - HEART Score Troponin: Troponin T 0.071 ng/mL (0.00-0.029) H 03/07/21 12:10 Results - Labs CBC & Chem 7: 03/09/21 05:02 03/09/21 05:02 Labs: Laboratory Last Values WBC 6.4 K/mm3 (4.5-11.0) 03/09/21 05:02 RBC 4.10 M/mm3 (3.65-5.03) 03/09/21 05:02 Hgb 10.2 gm/dl (11.8-15.2) L 03/09/21 05:02 Hct 31.3 % (35.5-45.6) L 03/09/21 05:02 MCV 76 fl (84-94) L 03/09/21 05:02 MCH 25 pg (28-32) L 03/09/21 05:02 MCHC 33 % (32-34) 03/09/21 05:02 RDW 20.9 % (13.2-15.2) H 03/09/21 05:02 Plt Count 325 K/mm3 (140-440) 03/09/21 05:02 Lymph % (Auto) 34.9 % (13.4-35.0) 03/09/21 05:02 Daniels % (Auto) 12.9 % (0.0-7.3) H 03/09/21 05:02 Eos % (Auto) 14.7 % (0.0-4.3) H 03/09/21 05:02 Baso % (Auto) 1.2 % (0.0-1.8) 03/09/21 05:02 Lymph # (Auto) 2.2 K/mm3 (1.2-5.4) 03/09/21 05:02 Daniels # (Auto) 0.8 K/mm3 (0.0-0.8) 03/09/21 05:02 Eos # (Auto) 0.9 K/mm3 (0.0-0.4) H 03/09/21 05:02 Baso # (Auto) 0.1 K/mm3 (0.0-0.1) 03/09/21 05:02 Seg Neutrophils % 36.3 % (40.0-70.0) L 03/09/21 05:02 Seg Neutrophils # 2.3 K/mm3 (1.8-7.7) 03/09/21 05:02 PT 13.6 Sec. (12.2-14.9) 03/07/21 12:10 INR 0.99 (0.87-1.13) 03/07/21 12:10 APTT 33.8 Sec. (24.2-36.6) 03/07/21 12:10 Sodium 139 mmol/L (137-145) 03/09/21 05:02 Potassium 4.0 mmol/L (3.6-5.0) 03/09/21 05:02 Chloride 104.7 mmol/L (98-107) 03/09/21 05:02 Carbon Dioxide 23 mmol/L (22-30) 03/09/21 05:02 Anion Gap 15 mmol/L 03/09/21 05:02 BUN 25 mg/dL (9-20) H 03/09/21 05:02 Creatinine 0.8 mg/dL (0.8-1.3) 03/09/21 05:02 Estimated GFR > 60 ml/min 03/09/21 05:02 BUN/Creatinine Ratio 31 % 03/09/21 05:02 Glucose 115 mg/dL (75-100) H 03/09/21 05:02 Hemoglobin A1c 6.8 % (4-6) H 03/08/21 04:42 Lactic Acid 1.80 mmol/L (0.7-2.0) 03/07/21 12:10 Calcium 8.8 mg/dL (8.4-10.2) 03/09/21 05:02 Total Bilirubin 0.60 mg/dL (0.1-1.2) 03/08/21 04:42 AST 20 units/L (5-40) 03/08/21 04:42 ALT 23 units/L (7-56) 03/08/21 04:42 Alkaline Phosphatase 97 units/L (35-129) 03/08/21 04:42 Ammonia 13.0 umol/L (25-60) L 03/07/21 12:10 Troponin T 0.071 ng/mL (0.00-0.029) H 03/07/21 12:10 Total Protein 8.0 g/dL (6.3-8.2) 03/08/21 04:42 Albumin 2.9 g/dL (3.9-5) L 03/08/21 04:42 Albumin/Globulin Ratio 0.6 % 03/08/21 04:42 Triglycerides 103 mg/dL (2-149) 03/07/21 12:10 Cholesterol 71 mg/dL (50-199) 03/07/21 12:10 LDL Cholesterol Direct 36 mg/dL (50-130) L 03/07/21 12:10 HDL Cholesterol 26 mg/dL (40-59) L 03/07/21 12:10 Cholesterol/HDL Ratio 2.73 % 03/07/21 12:10 Urine Color Yellow (Yellow) 03/07/21 Unknown Urine Turbidity Slightly-cloudy (Clear) 03/07/21 Unknown Urine pH 7.0 (5.0-7.0) 03/07/21 Unknown Ur Specific [place] 1.016 (1.003-1.030) 03/07/21 Unknown Urine Protein 30 mg/dl mg/dL (Negative) 03/07/21 Unknown Urine Glucose (UA) Neg mg/dL (Negative) 03/07/21 Unknown Urine Ketones Neg mg/dL (Negative) 03/07/21 Unknown Urine Blood Neg (Negative) 03/07/21 Unknown Urine Nitrite Pos (Negative) 03/07/21 Unknown Urine Bilirubin Neg (Negative) 03/07/21 Unknown Urine Urobilinogen < 2.0 mg/dL (<2.0) 03/07/21 Unknown Ur Leukocyte Esterase Lg (Negative) 03/07/21 Unknown Urine WBC (Auto) 29.0 /HPF (0.0-6.0) H 03/07/21 Unknown Urine RBC (Auto) 9.0 /HPF (0.0-6.0) 03/07/21 Unknown Urine Bacteria (Auto) 1+ /HPF (Negative) 03/07/21 Unknown Urine Mucus Few /HPF 03/07/21 Unknown Microbiology: Microbiology 03/07/21 14:00 Urine,[place] Urine Culture - Final [place]/IV: Voiding Method Condom Catheter Active Medications - Current Medications Current Medications: Generic Name Dose Route Start Last Admin Trade Name Freq PRN Reason Stop Dose Admin Acetaminophen 650 mg 03/07/21 16:01 Acetaminophen 325 Mg/10.15 Ml Oral Liqd Unit Dose FEEDTUBE Q4H PRN Pain, Mild (1-3) Albuterol 2.5 mg 03/08/21 12:00 Albuterol 2.5 Mg/3 Ml Nebu IH Q4HRT PRN Shortness Of Breath Allopurinol 100 mg 03/08/21 10:00 03/08/21 10:51 Allopurinol 100 Mg Tab FEEDTUBE 100 mg QDAY DIXIE Administration Lipase/Protease/Amylase 1 each 03/08/21 18:23 Lipase 10,500/Protease 25,000/Amylase 43,750 (Units) Dr Kuo FEEDTUBE PRN PRN For Clogged Feeding Tube Atorvastatin Calcium 40 mg 03/08/21 22:00 03/08/21 21:13 Atorvastatin 40 Mg Tab PO 40 mg QHS DIXIE Administration Enoxaparin Sodium 40 mg 03/08/21 10:00 03/08/21 10:52 Enoxaparin 40 Mg/0.4 Ml Inj SUB-Q 40 mg QDAY@1000 DIXIE Administration Fluticasone Propionate 50 mcg 03/08/21 10:00 03/08/21 21:16 Fluticasone Propionate Nasal [place] 16 Gm NS 50 mcg BID DIXIE Administration Hydromorphone HCl 0.5 mg 03/07/21 15:27 Hydromorphone 1 Mg/1 Ml Inj IV Q3H PRN Pain , Severe (7-10) Dextrose/Sodium Chloride 1,000 mls @ 75 mls/hr 03/07/21 16:00 03/08/21 23:59 D5ns IV 75 mls/hr DIRECT DIXIE Administration Ceftriaxone Sodium 1 gm in 50 mls @ 100 mls/hr 03/07/21 17:00 03/08/21 16:38 Rocephin/Ns 1 Gm/50 Ml IV 03/13/21 17:29 100 mls/hr Q24H DIXIE Administration Protocol Lactobacillus Acidophilus 1 each 03/09/21 11:00 Floranex Granule Packet FEEDTUBE DAILY DXIIE Lansoprazole 30 mg 03/09/21 11:00 Lansoprazole 30 Mg Solutab FEEDTUBE QDAY DIXIE Melatonin 5 mg 03/08/21 22:00 Melatonin 5 Mg Tab PO QHS PRN Insomnia Metoclopramide HCl 10 mg 03/07/21 15:27 03/07/21 23:02 Metoclopramide 10 Mg/2 Ml Inj IV 10 mg Q6H PRN Administration Nausea And Vomiting Ondansetron HCl 4 mg 03/07/21 15:27 Ondansetron 4 Mg/2 Ml Inj IV Q8H PRN Nausea And Vomiting Oxycodone/Acetaminophen 1 tab 03/07/21 16:00 Oxycodone /Acetaminophen 5-325mg Tab FEEDTUBE Q6H PRN Pain, Moderate (4-6) Polyethylene Glycol 17 gm 03/08/21 10:00 Polyethylene Glycol 3350 17 Gm Powder PO QDAY PRN Constipation Simple Syrup 15 ml 03/08/21 18:23 Simple Syrup 15 Ml FEEDTUBE PRN PRN Hypoglycemia Simple Syrup 30 ml 03/08/21 18:23 Simple Syrup 15 Ml FEEDTUBE PRN PRN Hypoglycemia Sodium Bicarbonate 325 mg 03/08/21 18:23 Sodium Bicarbonate 325 Mg Tab FEEDTUBE PRN PRN For Clogged Feeding Tube Sodium Chloride 10 ml 03/07/21 22:00 03/08/21 21:14 Sodium Chloride 0.9% 10 Ml Flush Syringe IV 10 ml BID DIXIE Administration Sodium Chloride 10 ml 03/07/21 15:27 Sodium Chloride 0.9% 10 Ml Flush Syringe IV PRN PRN LINE FLUSH Tamsulosin HCl 0.4 mg 03/08/21 22:00 03/08/21 21:13 Tamsulosin 0.4 Mg Cap PO 0.4 mg QHS DIXIE Administration Nutrition/Malnutrition Assess - Dietary Evaluation Nutrition/Malnutrition Findings: Nutrition Notes Start: 03/08/21 12:33 Freq: Status: Active Protocol: Document 03/08/21 12:33 NAKUL (Rec: 03/08/21 12:58 NAKUL [id number]) Nutrition Notes Need for Assessment generated from: MD Order Initial or Follow up Assessment Other Pertinent Diagnosis Encephalopaty, Altered mental status Current Diet Cardiac diet (since D 03/07) Labs/Tests 03/08: BUN 35. Pertinent Medications 03/08: Reviewed. Height 6 ft 2 in Weight 111.6 kg [place] Body Weight (kg) 86.36 BMI 31.6 Weight Status Overweight Subjective/Other Information At the time no available information on acceptance of food, % of meals intake, nor BM. Percent of energy/protein needs met: Prescribed Cardiac Diet provides foe energy/protein nedds (2230 Kcal/85 g) during LOS. Burn Absent Trauma Absent GI Symptoms None Food Allergy No Skin Integrity/Comment Integumentary; clear,warm,dry. #1 Nutrition Diagnosis No nutrition diagnosis at this time Comments: Pt condition of admission does not elicit a specific nutrition intervention, other than MD prescribed Cardiac Diet. Is patient on ventilator? No Is Patient Ambulatory and/or Out of Bed No REE-([facility]-confined to bed) 2298.948 Kcal/Kg value to use for calculation 20 Approximate Energy Requirements Using 2232 kcal/Kg Calculation Used for Recommendations Kcal/kg Additional Notes Protein: 0.8-1.0 g/Kg/day; 69- 86 g/day; 276-344 Kcal/day ( from IBW). Fluids: 1.0 ml/Kcal, or as per MD. Nutrition Intervention Change Diet Order: Continue prescribed Cardiac Diet. Goal #1 Maintain pt body weight within +/-3% of actual BWt during LOS. Goal #2 Reach and maintain acceptable chemistry lab values during LOS. Follow-Up By: 03/15/21 Additional Comments Continue monitoring acceptance of foods, % of PO intake, and BM.
[2021-03-09] MEDS: allopurinoL 100 MG TAB FEEDTUBE SCH (11:06)
[2021-03-09] MEDS: LANSOPRAZOLE 30 MG SOLUTAB FEEDTUBE SCH (11:06)
[2021-03-09] MEDS: ENOXAPARIN 40 MG/0.4 ML INJ SUB-Q SCH (11:06)
[2021-03-09] MEDS: FLUTICASONE PROPIONATE NASAL SPRAY 16 GM NS SCH ×2 (11:07→21:26)
--- NOTE | 2021-03-09 12:19 | Progress Note ---
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 -Since then there is some decline in his mental status he is currently alert and orientedX3 # diffuse weakness and tremor - he is with hx of encephalitis -he is bed ridden -Cervical MRI is remarkable for multilevel cervical central spinal stenosis more C3-4 and C5-6 -Suggest neuro surgery openion -pt is bed ridden # LEs possible static ulcer r/o infection # Acute kidney injury -IV Fluids for now -Vasomotor Nephropathy # Hyponatremia -IV normal saline for now # COPD (chronic obstructive pulmonary disease) -Nebulizer treatments on a as needed basis # BPH (benign prostatic hyperplasia) -Continue tamsulosin # Hyperlipidemia -Continue statins # DVT prophylaxis -On Heparin and GI prophylaxis PLAN 1-Neuro surgery to see 2- DVt prophylaxis 3- lower extremity ulcer r/o dvt r/o infection 4- PT therapy after clearance by NS will follow as needed Subjective Date of service: 03/09/21 Principal diagnosis: diffuse weakness bed ridden Interval history: status is same MRI brain is unremarkable C MRI is noted multiple cervical spinal central stenosis more C3-4 and C5-6 Objective - Vital Sign Vital Signs - 12hr 03/09/21 03/09/21 03/09/21 03:19 06:00 07:52 Temperature 97.4 F L 98.0 F Pulse Rate 73 69 74 Respiratory 18 18 Rate Blood Pressure 114/54 117/59 O2 Sat by Pulse 96 97 Oximetry - General Apperance Constitutional: comfortable - EENT EENT: PERRL, mucous membranes moist - Respiratory Respiratory: lungs clear, rhonchi - Cardiovascular Cardiovascular: regular rate, normal S1, normal S2 Extremities: no peripheral edema bilat, no clubbing, cyanosis - Gastrointestinal Gastrointestinal: normoactive bowel sounds - Integumentary Integumentary: normal - Neurologic Cranial nerve examination: PERRL, EOMI, intact Speech examination: intact Detailed motor examination: other (diffuse weakness and slight myoclonus) - Laboratory Findings CBC and BMP: 03/09/21 05:02 03/09/21 05:02 Abnormal Lab Findings: Abnormal Labs 10/10/2103/07/21 03/07/21 12:10 12:10 12:10 Hgb Hct MCV 76 L MCH 25 L RDW 21.3 H [place] % (Auto) 9.9 H Eos % (Auto) 10.5 H [place] # (Auto) Eos # (Auto) 0.8 H Seg Neutrophils % Sodium 136 L Chloride 97.8 L BUN 44 H Glucose 119 H Hemoglobin A1c Ammonia 13.0 L Troponin T 0.071 H Albumin 2.8 L LDL Cholesterol Direct 36 L HDL Cholesterol 26 L Urine WBC (Auto) 03/07/21 03/08/21 03/08/21 Unknown 04:42 04:42 Hgb 11.1 L Hct 34.3 L MCV 76 L MCH 25 L RDW 21.4 H [place] % (Auto) 11.8 H Eos % (Auto) 7.7 H [place] # (Auto) 0.9 H Eos # (Auto) 0.6 H Seg Neutrophils % Sodium Chloride BUN 35 H Glucose Hemoglobin A1c Ammonia Troponin T Albumin 2.9 L LDL Cholesterol Direct HDL Cholesterol Urine WBC (Auto) 29.0 H 03/08/21 03/09/21 03/09/21 04:42 05:02 05:02 Hgb 10.2 L Hct 31.3 L MCV 76 L MCH 25 L RDW 20.9 H [place] % (Auto) 12.9 H Eos % (Auto) 14.7 H [place] # (Auto) Eos # (Auto) 0.9 H Seg Neutrophils % 36.3 L Sodium Chloride BUN 25 H Glucose 115 H Hemoglobin A1c 6.8 H Ammonia Troponin T Albumin LDL Cholesterol Direct HDL Cholesterol Urine WBC (Auto)
--- NOTE | 2021-03-09 16:28 | Fluoroscopy Report ---
MODIFIED ESOPHAGRAM INDICATION: dysphagia , altered mental status Fluoroscopy time: 0.9 minutes, one image image(s) Study was performed in conjunction with the speech pathologist using a C-arm. Liquids: Thin liquids showed no aspiration. Mild vallecular and piriform sinus retention is seen. Food stuffs: Puree showed mild retention in the valleculae but no aspiration. IMPRESSION: Mild retention without obvious aspiration Signer Name: Michael Herrera MD Signed: 03/09/2021 4:24 PM Workstation Name: [id number]
[2021-03-09] MEDS: cefTRIAXone/NS 1 GM/50 ML 1 GM/50 ML BAG IV SCH (17:42)
[2021-03-09] MEDS: FLORANEX GRANULE PACKET FEEDTUBE SCH (20:06)
[2021-03-09] MEDS: TAMSULOSIN 0.4 MG CAP PO SCH (21:25)
[2021-03-09] MEDS: D5W/0.9% NACL 1,000 ML IV SCH (22:28)
[2021-03-10 05:55] LABS: Basophils # (Auto) 0.1 K/mm3 (0.0-0.1); Basophils % (Auto) 0.6 % (0.0-1.8); Eosinophils # (Auto) 0.5 K/mm3 (0.0-0.4); Eosinophils % (Auto) 3.6 % (0.0-4.3); Hematocrit 33.2 % (35.5-45.6); Hemoglobin 10.6 gm/dl (11.8-15.2); Lymphocytes # (Auto) 1.8 K/mm3 (1.2-5.4); Lymphocytes % (Auto) 13.8 % (13.4-35.0); Mean Corpuscular HGB Conc 32 % (32-34); Mean Corpuscular Volume 77 fl (84-94); Monocytes # (Auto) 1.5 K/mm3 (0.0-0.8); Monocytes % (Auto) 11.6 % (0.0-7.3); Platelet Count 342 K/mm3 (140-440); Red Blood Count 4.34 M/mm3 (3.65-5.03)
[2021-03-10 05:59] LABS: BUN/Creatinine Ratio 24; Blood Urea Nitrogen 19 mg/dL (9-20); Hemolysis Index 6
[2021-03-10 07:00] LABS: Red Cell Distribution Width 21.2 % (13.2-15.2)
[2021-03-10] MEDS: FLUTICASONE PROPIONATE NASAL SPRAY 16 GM NS SCH ×2 (09:59→22:09)
[2021-03-10] MEDS: LANSOPRAZOLE 30 MG SOLUTAB FEEDTUBE SCH (11:39)
[2021-03-10] MEDS: ENOXAPARIN 40 MG/0.4 ML INJ SUB-Q SCH (11:39)
[2021-03-10] MEDS: allopurinoL 100 MG TAB FEEDTUBE SCH (11:40)
[2021-03-10] MEDS: FLORANEX GRANULE PACKET FEEDTUBE SCH (11:40)
[2021-03-10] MEDS ORDERED: SIMPLE SYRUP 15 ML FEEDTUBE PRN ×2 (12:30)
[2021-03-10] MEDS ORDERED: SODIUM BICARBONATE 325 MG TAB FEEDTUBE PRN (12:30)
[2021-03-10] MEDS ORDERED: LIPASE 10,500/PROTEASE 25,000/AMYLASE 43,750 (UNITS) DR CAP FEEDTUBE PRN (12:30)
--- NOTE | 2021-03-10 14:51 | Progress Note ---
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 Since then there is some decline in his mental status PT, OT, speech therapy and swallow eval MRI brain 03/08 without; mild to moderate microvascular angiopathy and cerebral atrophy no evidence of infarction Brain MRI with contrast; 03/09; no acute infarction no acute findings senescent changes MRI cervical spine; multilevel discogenic degenerative change CT head without contrast no acute abnormalities Age-related chronic changes --Acute kidney injury Current Visit: Yes Status: Acute Secondary to dehydration .elevated BUN , creatinine within normal limits Vasomotor Nephropathy Continue gentle hydration and closely monitor -- Hyponatremia Current Visit: Yes Status: Acute Plan to address problem: Present on admission, significantly improved Closely monitor electrolytes -- COPD (chronic obstructive pulmonary disease) Current Visit: Yes Status: Chronic Nebulizer treatments on a as needed basis Oxygen as needed. titrate O2 sats to more than 90% --BPH (benign prostatic hyperplasia) Current Visit: Yes Status: Chronic Continue tamsulosin, supportive care -- Hyperlipidemia Current Visit: Yes Status: Chronic Continue statins -- superficial wounds; Current Visit: Yes Status: Chronic Consult wound care, wound cultures if needed --DVT prophylaxis Current Visit: Yes Status: Acute Subcu Lovenox and GI prophylaxis 03/08/2021; patient is more alert and awake responding appropriately No distress, no confusion or agitation, neurology evaluation noted Neuro work-up is in progress 03/09/2021; Nurse reports that patient is little agitated and confused this morning MRI brain, MRI neck scheduled for today Neurology following 03/10/2021; Pending PT OT evaluation DC planning Case management History Interval history: I have seen and examined the patient at the bedside Patient's chart and medications reviewed Patient wants to go home, does not want any placements Patient does not have any new complaints Hospitalist Physical - Constitutional Vitals: Temp Pulse Resp BP Pulse Ox 98.6 F 73 18 142/61 99 03/10/21 04:23 03/10/21 06:00 03/10/21 04:23 03/10/21 04:23 03/10/21 04:23 General appearance: Present: no acute distress, well-nourished, other (Patient is slightly irritated) - EENT Eyes: Present: PERRL, EOM intact - Neck Neck: Present: supple, normal ROM - Respiratory Respiratory effort: normal Respiratory: bilateral: diminished, negative: rales, rhonchi, wheezing - Cardiovascular Rhythm: regular Heart Sounds: Present: S1 & S2 - Extremities Extremities: no ischemia, No edema - Abdominal General gastrointestinal: soft, non-tender, non-distended, normal bowel sounds - Integumentary Integumentary: Present: clear, warm - Psychiatric Psychiatric: appropriate mood/affect, cooperative, other (Irritated) - Neurologic Neurologic: moves all extremities HEART Score - HEART Score Troponin: Troponin T 0.071 ng/mL (0.00-0.029) H 03/07/21 12:10 Results - Labs CBC & Chem 7: 03/10/21 04:59 03/10/21 04:59 Labs: Laboratory Last Values WBC 12.7 K/mm3 (4.5-11.0) H 03/10/21 04:59 RBC 4.34 M/mm3 (3.65-5.03) 03/10/21 04:59 Hgb 10.6 gm/dl (11.8-15.2) L 03/10/21 04:59 Hct 33.2 % (35.5-45.6) L 03/10/21 04:59 MCV 77 fl (84-94) L 03/10/21 04:59 MCH 24 pg (28-32) L 03/10/21 04:59 MCHC 32 % (32-34) 03/10/21 04:59 RDW 21.2 % (13.2-15.2) H 03/10/21 04:59 Plt Count 342 K/mm3 (140-440) 03/10/21 04:59 Lymph % (Auto) 13.8 % (13.4-35.0) 03/10/21 04:59 [place] % (Auto) 11.6 % (0.0-7.3) H 03/10/21 04:59 Eos % (Auto) 3.6 % (0.0-4.3) 03/10/21 04:59 Baso % (Auto) 0.6 % (0.0-1.8) 03/10/21 04:59 Lymph # (Auto) 1.8 K/mm3 (1.2-5.4) 03/10/21 04:59 [place] # (Auto) 1.5 K/mm3 (0.0-0.8) H 03/10/21 04:59 Eos # (Auto) 0.5 K/mm3 (0.0-0.4) H 03/10/21 04:59 Baso # (Auto) 0.1 K/mm3 (0.0-0.1) 03/10/21 04:59 Seg Neutrophils % 70.4 % (40.0-70.0) H 03/10/21 04:59 Seg Neutrophils # 9.0 K/mm3 (1.8-7.7) H 03/10/21 04:59 PT 13.6 Sec. (12.2-14.9) 03/07/21 12:10 INR 0.99 (0.87-1.13) 03/07/21 12:10 APTT 33.8 Sec. (24.2-36.6) 03/07/21 12:10 Sodium 139 mmol/L (137-145) 03/10/21 04:59 Potassium 4.0 mmol/L (3.6-5.0) 03/10/21 04:59 Chloride 103.4 mmol/L (98-107) 03/10/21 04:59 Carbon Dioxide 24 mmol/L (22-30) 03/10/21 04:59 Anion Gap 16 mmol/L 03/10/21 04:59 BUN 19 mg/dL (9-20) 03/10/21 04:59 Creatinine 0.8 mg/dL (0.8-1.3) 03/10/21 04:59 Estimated GFR > 60 ml/min 03/10/21 04:59 BUN/Creatinine Ratio 24 % 03/10/21 04:59 Glucose 131 mg/dL (75-100) H 03/10/21 04:59 POC Glucose 130 mg/dL (70-105) H 03/10/21 06:23 Hemoglobin A1c 6.8 % (4-6) H 03/08/21 04:42 Lactic Acid 1.80 mmol/L (0.7-2.0) 03/07/21 12:10 Calcium 9.0 mg/dL (8.4-10.2) 03/10/21 04:59 Total Bilirubin 0.60 mg/dL (0.1-1.2) 03/08/21 04:42 AST 20 units/L (5-40) 03/08/21 04:42 ALT 23 units/L (7-56) 03/08/21 04:42 Alkaline Phosphatase 97 units/L (35-129) 03/08/21 04:42 Ammonia 13.0 umol/L (25-60) L 03/07/21 12:10 Troponin T 0.071 ng/mL (0.00-0.029) H 03/07/21 12:10 Total Protein 8.0 g/dL (6.3-8.2) 03/08/21 04:42 Albumin 2.9 g/dL (3.9-5) L 03/08/21 04:42 Albumin/Globulin Ratio 0.6 % 03/08/21 04:42 Triglycerides 103 mg/dL (2-149) 03/07/21 12:10 Cholesterol 71 mg/dL (50-199) 03/07/21 12:10 LDL Cholesterol Direct 36 mg/dL (50-130) L 03/07/21 12:10 HDL Cholesterol 26 mg/dL (40-59) L 03/07/21 12:10 Cholesterol/HDL Ratio 2.73 % 03/07/21 12:10 Urine Color Yellow (Yellow) 03/07/21 Unknown Urine Turbidity Slightly-cloudy (Clear) 03/07/21 Unknown Urine pH 7.0 (5.0-7.0) 03/07/21 Unknown Ur Specific [place] 1.016 (1.003-1.030) 03/07/21 Unknown Urine Protein 30 mg/dl mg/dL (Negative) 03/07/21 Unknown Urine Glucose (UA) Neg mg/dL (Negative) 03/07/21 Unknown Urine Ketones Neg mg/dL (Negative) 03/07/21 Unknown Urine Blood Neg (Negative) 03/07/21 Unknown Urine Nitrite Pos (Negative) 03/07/21 Unknown Urine Bilirubin Neg (Negative) 03/07/21 Unknown Urine Urobilinogen < 2.0 mg/dL (<2.0) 03/07/21 Unknown Ur Leukocyte Esterase Lg (Negative) 03/07/21 Unknown Urine WBC (Auto) 29.0 /HPF (0.0-6.0) H 03/07/21 Unknown Urine RBC (Auto) 9.0 /HPF (0.0-6.0) 03/07/21 Unknown Urine Bacteria (Auto) 1+ /HPF (Negative) 03/07/21 Unknown Urine Mucus Few /HPF 03/07/21 Unknown [place]/IV: Voiding Method Condom Catheter Active Medications - Current Medications Current Medications: Generic Name Dose Route Start Last Admin Trade Name Freq PRN Reason Stop Dose Admin Acetaminophen 650 mg 03/07/21 16:01 Acetaminophen 325 Mg/10.15 Ml Oral Liqd Unit Dose FEEDTUBE Q4H PRN Pain, Mild (1-3) Albuterol 2.5 mg 03/08/21 12:00 Albuterol 2.5 Mg/3 Ml Nebu IH Q4HRT PRN Shortness Of Breath Allopurinol 100 mg 03/08/21 10:00 03/10/21 11:40 Allopurinol 100 Mg Tab FEEDTUBE 100 mg QDAY DIXIE Administration Lipase/Protease/Amylase 1 each 03/10/21 12:30 Lipase 10,500/Protease 25,000/Amylase 43,750 (Units) Dr Kuo FEEDTUBE PRN PRN For Clogged Feeding Tube Atorvastatin Calcium 40 mg 03/08/21 22:00 03/09/21 21:25 Atorvastatin 40 Mg Tab PO 40 mg QHS DIXIE Administration Enoxaparin Sodium 40 mg 03/08/21 10:00 03/10/21 11:39 Enoxaparin 40 Mg/0.4 Ml Inj SUB-Q 40 mg QDAY@1000 DIXIE Administration Fluticasone Propionate 50 mcg 03/08/21 10:00 03/09/21 21:26 Fluticasone Propionate Nasal [place] 16 Gm NS 50 mcg BID DIXIE Administration Hydromorphone HCl 0.5 mg 03/07/21 15:27 Hydromorphone 1 Mg/1 Ml Inj IV Q3H PRN Pain , Severe (7-10) Dextrose/Sodium Chloride 1,000 mls @ 75 mls/hr 03/07/21 16:00 03/09/21 22:28 D5ns IV 75 mls/hr DIRECT DIXIE Administration Ceftriaxone Sodium 1 gm in 50 mls @ 100 mls/hr 03/07/21 17:00 03/09/21 17:42 Rocephin/Ns 1 Gm/50 Ml IV 03/13/21 17:29 Not Given Q24H DIXIE Protocol Lactobacillus Acidophilus 1 each 03/09/21 11:00 03/10/21 11:40 Floranex Granule Packet FEEDTUBE 1 each DAILY DIXIE Administration Lansoprazole 30 mg 03/09/21 11:00 03/10/21 11:39 Lansoprazole 30 Mg Solutab FEEDTUBE 30 mg QDAY DIXIE Administration Melatonin 5 mg 03/08/21 22:00 Melatonin 5 Mg Tab PO QHS PRN Insomnia Metoclopramide HCl 10 mg 03/07/21 15:27 03/07/21 23:02 Metoclopramide 10 Mg/2 Ml Inj IV 10 mg Q6H PRN Administration Nausea And Vomiting Ondansetron HCl 4 mg 03/07/21 15:27 Ondansetron 4 Mg/2 Ml Inj IV Q8H PRN Nausea And Vomiting Oxycodone/Acetaminophen 1 tab 03/07/21 16:00 Oxycodone /Acetaminophen 5-325mg Tab FEEDTUBE Q6H PRN Pain, Moderate (4-6) Polyethylene Glycol 17 gm 03/08/21 10:00 Polyethylene Glycol 3350 17 Gm Powder PO QDAY PRN Constipation Simple Syrup 15 ml 03/10/21 12:30 Simple Syrup 15 Ml FEEDTUBE PRN PRN Hypoglycemia Simple Syrup 30 ml 03/10/21 12:30 Simple Syrup 15 Ml FEEDTUBE PRN PRN Hypoglycemia Sodium Bicarbonate 325 mg 03/10/21 12:30 Sodium Bicarbonate 325 Mg Tab FEEDTUBE PRN PRN For Clogged Feeding Tube Sodium Chloride 10 ml 03/07/21 22:00 03/09/21 22:28 Sodium Chloride 0.9% 10 Ml Flush Syringe IV 10 ml BID DIXIE Administration Sodium Chloride 10 ml 03/07/21 15:27 Sodium Chloride 0.9% 10 Ml Flush Syringe IV PRN PRN LINE FLUSH Tamsulosin HCl 0.4 mg 03/08/21 22:00 03/09/21 21:25 Tamsulosin 0.4 Mg Cap PO 0.4 mg QHS DIXIE Administration Nutrition/Malnutrition Assess - Dietary Evaluation Nutrition/Malnutrition Findings: Nutrition Notes Start: 03/08/21 12:33 Freq: Status: Active Protocol: Document 03/08/21 12:33 NAKUL (Rec: 03/08/21 12:58 NAKUL [id number]) Nutrition Notes Need for Assessment generated from: MD Order Initial or Follow up Assessment Other Pertinent Diagnosis Encephalopaty, Altered mental status Current Diet Cardiac diet (since D 03/07); suspended for Tube Feeding ( since D 03/09) Labs/Tests 03/08: BUN 35. Pertinent Medications 03/08: Reviewed. Height 6 ft 2 in Weight 111.6 kg [place] Body Weight (kg) 86.36 BMI 31.6 Weight Status Overweight Subjective/Other Information At the time no available information on acceptance of food, % of meals intake, nor BM. Percent of energy/protein needs met: Prescribed Tube Feeding provides for 80.7% of energy/ protein nedds (1,800Kcal/ 90g) during LOS. Burn Absent Trauma Absent GI Symptoms None Food Allergy No Skin Integrity/Comment Integumentary; clear,warm,dry. #1 Nutrition Diagnosis No nutrition diagnosis at this time Comments: MD ordered Tube Feeding Is patient on ventilator? No Is Patient Ambulatory and/or Out of Bed No REE-([facility]-confined to bed) 2298.948 Kcal/Kg value to use for calculation 20 Approximate Energy Requirements Using 2232 kcal/Kg Calculation Used for Recommendations Kcal/kg Additional Notes Protein: 0.8-1.0 g/Kg/day; 69- 86 g/day; 276-344 Kcal/day ( from IBW). Fluids: 1.0 ml/Kcal, or as per MD. Nutrition Intervention Change Diet Order: Stop Cardiac Diet as per MD. Nutrition Support: Start Glucerna1.2 (1500 ml @ 63 ml/h) Flush: 170 ml Q 4hrs. = 1,022 ml Kcal 1,800 Protein (gm) 90 Carbohydrates (gm) 172 Fat (gm) 90 Fluid (mL) 1,208 Fiber (gm) 24 % RDI: 80.7 Goal #1 Maintain pt body weight within +/-3% of actual BWt during LOS. Goal #2 Reach and maintain acceptable chemistry lab values during LOS. Follow-Up By: 03/13/21 Additional Comments Per MD Tube Feeding has been set to Glucerna 1.2 @ 36 ml/hr . Rate adjusted @ 63 ml/hr. Continue monitoring tolerance to Tube Feeding, hydration, and BM.
[2021-03-10] MEDS: cefTRIAXone/NS 1 GM/50 ML 1 GM/50 ML BAG IV SCH (19:00)
[2021-03-10] MEDS: TAMSULOSIN 0.4 MG CAP PO SCH (22:04)
[2021-03-11 05:46] LABS: Basophils # (Auto) 0.1 K/mm3 (0.0-0.1); Basophils % (Auto) 0.5 % (0.0-1.8); Eosinophils # (Auto) 0.5 K/mm3 (0.0-0.4); Eosinophils % (Auto) 4.4 % (0.0-4.3); Hematocrit 30.3 % (35.5-45.6); Hemoglobin 9.7 gm/dl (11.8-15.2); Lymphocytes % (Auto) 16.7 % (13.4-35.0); Mean Corpuscular HGB Conc 32 % (32-34); Mean Corpuscular Volume 77 fl (84-94); Monocytes # (Auto) 1.4 K/mm3 (0.0-0.8); Monocytes % (Auto) 11.5 % (0.0-7.3); Platelet Count 323 K/mm3 (140-440); Red Blood Count 3.97 M/mm3 (3.65-5.03)
[2021-03-11 05:51] LABS: Red Cell Distribution Width 21.5 % (13.2-15.2)
[2021-03-11] MEDS: D5W/0.9% NACL 1,000 ML IV SCH (05:53)
[2021-03-11 06:11] LABS: BUN/Creatinine Ratio 19; Blood Urea Nitrogen 17 mg/dL (9-20); Calcium 8.7 mg/dL (8.4-10.2); Hemolysis Index 4
--- NOTE | 2021-03-11 09:30 | Progress Note ---
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 Since then there is some decline in his mental status PT, OT, speech therapy and swallow eval MRI brain 03/08 without; mild to moderate microvascular angiopathy and cerebral atrophy no evidence of infarction Brain MRI with contrast; 03/09; no acute infarction no acute findings senescent changes MRI cervical spine; multilevel discogenic degenerative change CT head without contrast no acute abnormalities Age-related chronic changes --Acute kidney injury Current Visit: Yes Status: Acute Secondary to dehydration .elevated BUN , creatinine within normal limits Vasomotor Nephropathy Continue gentle hydration and closely monitor -- Hyponatremia Current Visit: Yes Status: Acute Plan to address problem: Present on admission, significantly improved Closely monitor electrolytes -- COPD (chronic obstructive pulmonary disease) Current Visit: Yes Status: Chronic Nebulizer treatments on a as needed basis Oxygen as needed. titrate O2 sats to more than 90% --BPH (benign prostatic hyperplasia) Current Visit: Yes Status: Chronic Continue tamsulosin, supportive care -- Hyperlipidemia Current Visit: Yes Status: Chronic Continue statins -- superficial wounds; Current Visit: Yes Status: Chronic Consult wound care, wound cultures if needed --Full CODE STATUS --DVT prophylaxis Current Visit: Yes Status: Acute Subcu Lovenox and GI prophylaxis Discharge planning; family decided on LTAC placement Case management is assisting with discharge planning 03/08/2021; patient is more alert and awake responding appropriately No distress, no confusion or agitation, neurology evaluation noted Neuro work-up is in progress 03/09/2021; Nurse reports that patient is little agitated and confused this morning MRI brain, MRI neck scheduled for today Neurology following 03/10/2021; Pending PT OT evaluation DC planning Case management 03/11/2021: PT still working on the patient Pending LTAC placement History Interval history: I have seen and examined Mr. Herrera this morning Patient is upset and teary, wants to go home Does not want any LTAC /rehab placement. No new events reported by the nursing staff Hospitalist Physical - Constitutional Vitals: Temp Pulse Resp BP Pulse Ox 100.2 F H 77 18 137/58 98 03/10/21 22:08 03/10/21 22:08 03/10/21 22:08 03/10/21 22:08 03/10/21 23:00 General appearance: Present: no acute distress, well-nourished, other (Patient is upset and agitated) - EENT Eyes: Present: PERRL, EOM intact - Neck Neck: Present: supple, normal ROM - Respiratory Respiratory effort: normal Respiratory: bilateral: diminished, negative: rales, rhonchi, wheezing - Cardiovascular Rhythm: regular Heart Sounds: Present: S1 & S2 - Extremities Extremities: no ischemia, No edema, abnormal (Superficial wounds at different stages) - Abdominal General gastrointestinal: soft, non-tender, non-distended, normal bowel sounds, other (PEG tube in place) - Integumentary Integumentary: Present: clear, warm - Psychiatric Psychiatric: appropriate mood/affect, cooperative, other (Sometimes irritated) - Neurologic Neurologic: moves all extremities HEART Score - HEART Score Troponin: Troponin T 0.071 ng/mL (0.00-0.029) H 03/07/21 12:10 Results - Labs CBC & Chem 7: 03/12/21 05:11 03/12/21 05:11 Labs: Laboratory Last Values WBC 11.9 K/mm3 (4.5-11.0) H 03/11/21 04:51 RBC 3.97 M/mm3 (3.65-5.03) 03/11/21 04:51 Hgb 9.7 gm/dl (11.8-15.2) L 03/11/21 04:51 Hct 30.3 % (35.5-45.6) L 03/11/21 04:51 MCV 77 fl (84-94) L 03/11/21 04:51 MCH 25 pg (28-32) L 03/11/21 04:51 MCHC 32 % (32-34) 03/11/21 04:51 RDW 21.5 % (13.2-15.2) H 03/11/21 04:51 Plt Count 323 K/mm3 (140-440) 03/11/21 04:51 Lymph % (Auto) 16.7 % (13.4-35.0) 03/11/21 04:51 [place] % (Auto) 11.5 % (0.0-7.3) H 03/11/21 04:51 Eos % (Auto) 4.4 % (0.0-4.3) H 03/11/21 04:51 Baso % (Auto) 0.5 % (0.0-1.8) 03/11/21 04:51 Lymph # (Auto) 2.0 K/mm3 (1.2-5.4) 03/11/21 04:51 [place] # (Auto) 1.4 K/mm3 (0.0-0.8) H 03/11/21 04:51 Eos # (Auto) 0.5 K/mm3 (0.0-0.4) H 03/11/21 04:51 Baso # (Auto) 0.1 K/mm3 (0.0-0.1) 03/11/21 04:51 Seg Neutrophils % 66.9 % (40.0-70.0) 03/11/21 04:51 Seg Neutrophils # 8.0 K/mm3 (1.8-7.7) H 03/11/21 04:51 PT 13.6 Sec. (12.2-14.9) 03/07/21 12:10 INR 0.99 (0.87-1.13) 03/07/21 12:10 APTT 33.8 Sec. (24.2-36.6) 03/07/21 12:10 Sodium 140 mmol/L (137-145) 03/11/21 04:51 Potassium 4.0 mmol/L (3.6-5.0) 03/11/21 04:51 Chloride 106.3 mmol/L (98-107) 03/11/21 04:51 Carbon Dioxide 22 mmol/L (22-30) 03/11/21 04:51 Anion Gap 16 mmol/L 03/11/21 04:51 BUN 17 mg/dL (9-20) 03/11/21 04:51 Creatinine 0.9 mg/dL (0.8-1.3) 03/11/21 04:51 Estimated GFR > 60 ml/min 03/11/21 04:51 BUN/Creatinine Ratio 19 % 03/11/21 04:51 Glucose 142 mg/dL (75-100) H 03/11/21 04:51 POC Glucose 130 mg/dL (70-105) H 03/10/21 06:23 Hemoglobin A1c 6.8 % (4-6) H 03/08/21 04:42 Lactic Acid 1.80 mmol/L (0.7-2.0) 03/07/21 12:10 Calcium 8.7 mg/dL (8.4-10.2) 03/11/21 04:51 Total Bilirubin 0.60 mg/dL (0.1-1.2) 03/08/21 04:42 AST 20 units/L (5-40) 03/08/21 04:42 ALT 23 units/L (7-56) 03/08/21 04:42 Alkaline Phosphatase 97 units/L (35-129) 03/08/21 04:42 Ammonia 13.0 umol/L (25-60) L 03/07/21 12:10 Troponin T 0.071 ng/mL (0.00-0.029) H 03/07/21 12:10 Total Protein 8.0 g/dL (6.3-8.2) 03/08/21 04:42 Albumin 2.9 g/dL (3.9-5) L 03/08/21 04:42 Albumin/Globulin Ratio 0.6 % 03/08/21 04:42 Triglycerides 103 mg/dL (2-149) 03/07/21 12:10 Cholesterol 71 mg/dL (50-199) 03/07/21 12:10 LDL Cholesterol Direct 36 mg/dL (50-130) L 03/07/21 12:10 HDL Cholesterol 26 mg/dL (40-59) L 03/07/21 12:10 Cholesterol/HDL Ratio 2.73 % 03/07/21 12:10 Urine Color Yellow (Yellow) 03/07/21 Unknown Urine Turbidity Slightly-cloudy (Clear) 03/07/21 Unknown Urine pH 7.0 (5.0-7.0) 03/07/21 Unknown Ur Specific [place] 1.016 (1.003-1.030) 03/07/21 Unknown Urine Protein 30 mg/dl mg/dL (Negative) 03/07/21 Unknown Urine Glucose (UA) Neg mg/dL (Negative) 03/07/21 Unknown Urine Ketones Neg mg/dL (Negative) 03/07/21 Unknown Urine Blood Neg (Negative) 03/07/21 Unknown Urine Nitrite Pos (Negative) 03/07/21 Unknown Urine Bilirubin Neg (Negative) 03/07/21 Unknown Urine Urobilinogen < 2.0 mg/dL (<2.0) 03/07/21 Unknown Ur Leukocyte Esterase Lg (Negative) 03/07/21 Unknown Urine WBC (Auto) 29.0 /HPF (0.0-6.0) H 03/07/21 Unknown Urine RBC (Auto) 9.0 /HPF (0.0-6.0) 03/07/21 Unknown Urine Bacteria (Auto) 1+ /HPF (Negative) 03/07/21 Unknown Urine Mucus Few /HPF 03/07/21 Unknown [place]/IV: Voiding Method Condom Catheter Active Medications - Current Medications Current Medications: Generic Name Dose Route Start Last Admin Trade Name Freq PRN Reason Stop Dose Admin Acetaminophen 650 mg 03/07/21 16:01 Acetaminophen 325 Mg/10.15 Ml Oral Liqd Unit Dose FEEDTUBE Q4H PRN Pain, Mild (1-3) Albuterol 2.5 mg 03/08/21 12:00 Albuterol 2.5 Mg/3 Ml Nebu IH Q4HRT PRN Shortness Of Breath Allopurinol 100 mg 03/08/21 10:00 03/10/21 11:40 Allopurinol 100 Mg Tab FEEDTUBE 100 mg QDAY DIXIE Administration Lipase/Protease/Amylase 1 each 03/10/21 12:30 Lipase 10,500/Protease 25,000/Amylase 43,750 (Units) Dr Kuo FEEDTUBE PRN PRN For Clogged Feeding Tube Atorvastatin Calcium 40 mg 03/08/21 22:00 03/10/21 22:03 Atorvastatin 40 Mg Tab PO 40 mg QHS DIXIE Administration Enoxaparin Sodium 40 mg 03/08/21 10:00 03/10/21 11:39 Enoxaparin 40 Mg/0.4 Ml Inj SUB-Q 40 mg QDAY@1000 DIXIE Administration Fluticasone Propionate 50 mcg 03/08/21 10:00 03/10/21 22:09 Fluticasone Propionate Nasal [place] 16 Gm NS 50 mcg BID DIXIE Administration Hydromorphone HCl 0.5 mg 03/07/21 15:27 Hydromorphone 1 Mg/1 Ml Inj IV Q3H PRN Pain , Severe (7-10) Dextrose/Sodium Chloride 1,000 mls @ 75 mls/hr 03/07/21 16:00 03/11/21 05:53 D5ns IV 75 mls/hr DIRECT DIXIE Administration Ceftriaxone Sodium 1 gm in 50 mls @ 100 mls/hr 03/07/21 17:00 03/10/21 19:00 Rocephin/Ns 1 Gm/50 Ml IV 03/13/21 17:29 100 mls/hr Q24H DIXIE Administration Protocol Lactobacillus Acidophilus 1 each 03/09/21 11:00 03/10/21 11:40 Floranex Granule Packet FEEDTUBE 1 each DAILY DIXIE Administration Lansoprazole 30 mg 03/09/21 11:00 03/10/21 11:39 Lansoprazole 30 Mg Solutab FEEDTUBE 30 mg QDAY DIXIE Administration Melatonin 5 mg 03/08/21 22:00 03/10/21 22:09 Melatonin 5 Mg Tab PO 5 mg QHS PRN Administration Insomnia Metoclopramide HCl 10 mg 03/07/21 15:27 03/07/21 23:02 Metoclopramide 10 Mg/2 Ml Inj IV 10 mg Q6H PRN Administration Nausea And Vomiting Ondansetron HCl 4 mg 03/07/21 15:27 Ondansetron 4 Mg/2 Ml Inj IV Q8H PRN Nausea And Vomiting Oxycodone/Acetaminophen 1 tab 03/07/21 16:00 Oxycodone /Acetaminophen 5-325mg Tab FEEDTUBE Q6H PRN Pain, Moderate (4-6) Polyethylene Glycol 17 gm 03/08/21 10:00 Polyethylene Glycol 3350 17 Gm Powder PO QDAY PRN Constipation Simple Syrup 15 ml 03/10/21 12:30 Simple Syrup 15 Ml FEEDTUBE PRN PRN Hypoglycemia Simple Syrup 30 ml 03/10/21 12:30 Simple Syrup 15 Ml FEEDTUBE PRN PRN Hypoglycemia Sodium Bicarbonate 325 mg 03/10/21 12:30 Sodium Bicarbonate 325 Mg Tab FEEDTUBE PRN PRN For Clogged Feeding Tube Sodium Chloride 10 ml 03/07/21 22:00 03/10/21 22:04 Sodium Chloride 0.9% 10 Ml Flush Syringe IV 10 ml BID DIXIE Administration Sodium Chloride 10 ml 03/07/21 15:27 Sodium Chloride 0.9% 10 Ml Flush Syringe IV PRN PRN LINE FLUSH Tamsulosin HCl 0.4 mg 03/08/21 22:00 03/10/21 22:04 Tamsulosin 0.4 Mg Cap PO 0.4 mg QHS DIXIE Administration Nutrition/Malnutrition Assess - Dietary Evaluation Nutrition/Malnutrition Findings: Nutrition Notes Start: 03/08/21 12:33 Freq: Status: Active Protocol: Document 03/08/21 12:33 NAKUL (Rec: 03/08/21 12:58 NAKUL [email or web address]) Nutrition Notes Need for Assessment generated from: MD Order Initial or Follow up Assessment Other Pertinent Diagnosis Encephalopaty, Altered mental status Current Diet Cardiac diet (since D 03/07); suspended for Tube Feeding ( since D 03/09) Labs/Tests 03/08: BUN 35. Pertinent Medications 03/08: Reviewed. Height 6 ft 2 in Weight 111.6 kg [place] Body Weight (kg) 86.36 BMI 31.6 Weight Status Overweight Subjective/Other Information At the time no available information on acceptance of food, % of meals intake, nor BM. Percent of energy/protein needs met: Prescribed Tube Feeding provides for 80.7% of energy/ protein nedds (1,800Kcal/ 90g) during LOS. Burn Absent Trauma Absent GI Symptoms None Food Allergy No Skin Integrity/Comment Integumentary; clear,warm,dry. #1 Nutrition Diagnosis No nutrition diagnosis at this time Comments: MD ordered Tube Feeding Is patient on ventilator? No Is Patient Ambulatory and/or Out of Bed No REE-([facility]-confined to bed) 2298.948 Kcal/Kg value to use for calculation 20 Approximate Energy Requirements Using 2232 kcal/Kg Calculation Used for Recommendations Kcal/kg Additional Notes Protein: 0.8-1.0 g/Kg/day; 69- 86 g/day; 276-344 Kcal/day ( from IBW). Fluids: 1.0 ml/Kcal, or as per MD. Nutrition Intervention Change Diet Order: Stop Cardiac Diet as per MD. Nutrition Support: Start Glucerna1.2 (1500 ml @ 63 ml/h) Flush: 170 ml Q 4hrs. = 1,022 ml Kcal 1,800 Protein (gm) 90 Carbohydrates (gm) 172 Fat (gm) 90 Fluid (mL) 1,208 Fiber (gm) 24 % RDI: 80.7 Goal #1 Maintain pt body weight within +/-3% of actual BWt during LOS. Goal #2 Reach and maintain acceptable chemistry lab values during LOS. Follow-Up By: 03/13/21 Additional Comments Per MD Tube Feeding has been set to Glucerna 1.2 @ 36 ml/hr . Rate adjusted @ 63 ml/hr. Continue monitoring tolerance to Tube Feeding, hydration, and BM.
[2021-03-11] MEDS: ENOXAPARIN 40 MG/0.4 ML INJ SUB-Q SCH (10:56)
[2021-03-11] MEDS: FLORANEX GRANULE PACKET FEEDTUBE SCH (10:57)
[2021-03-11] MEDS: FLUTICASONE PROPIONATE NASAL SPRAY 16 GM NS SCH ×2 (10:57→21:14)
[2021-03-11] MEDS: LANSOPRAZOLE 30 MG SOLUTAB FEEDTUBE SCH (10:57)
[2021-03-11] MEDS: allopurinoL 100 MG TAB FEEDTUBE SCH (10:58)
[2021-03-11] MEDS: cefTRIAXone/NS 1 GM/50 ML 1 GM/50 ML BAG IV SCH (18:55)
[2021-03-11] MEDS: TAMSULOSIN 0.4 MG CAP PO SCH (21:13)
[2021-03-12 06:02] LABS: Basophils # (Auto) 0.1 K/mm3 (0.0-0.1); Basophils % (Auto) 0.6 % (0.0-1.8); Eosinophils # (Auto) 0.6 K/mm3 (0.0-0.4); Eosinophils % (Auto) 6.8 % (0.0-4.3); Hematocrit 30.6 % (35.5-45.6); Hemoglobin 9.8 gm/dl (11.8-15.2); Lymphocytes # (Auto) 1.7 K/mm3 (1.2-5.4); Lymphocytes % (Auto) 20.3 % (13.4-35.0); Mean Corpuscular HGB Conc 32 % (32-34); Mean Corpuscular Volume 76 fl (84-94); Monocytes % (Auto) 11.7 % (0.0-7.3); Platelet Count 353 K/mm3 (140-440); Red Blood Count 4.03 M/mm3 (3.65-5.03)
[2021-03-12 06:03] LABS: Red Cell Distribution Width 20.9 % (13.2-15.2)
[2021-03-12 06:22] LABS: BUN/Creatinine Ratio 20; Blood Urea Nitrogen 16 mg/dL (9-20); Calcium 8.5 mg/dL (8.4-10.2); Hemolysis Index 2
[2021-03-12] MEDS: ENOXAPARIN 40 MG/0.4 ML INJ SUB-Q SCH (10:23)
[2021-03-12] MEDS: FLORANEX GRANULE PACKET FEEDTUBE SCH (10:23)
[2021-03-12] MEDS: LANSOPRAZOLE 30 MG SOLUTAB FEEDTUBE SCH (10:23)
[2021-03-12] MEDS: allopurinoL 100 MG TAB FEEDTUBE SCH (10:23)
[2021-03-12] MEDS: FLUTICASONE PROPIONATE NASAL SPRAY 16 GM NS SCH ×2 (10:24→21:08)
--- NOTE | 2021-03-12 16:19 | Progress Note ---
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 Since then there is some decline in his mental status PT, OT, speech therapy and swallow evaluated Tests reports; MRI brain 03/08 without; mild to moderate microvascular angiopathy and cerebral atrophy no evidence of infarction Brain MRI with contrast; 03/09; no acute infarction no acute findings senescent changes MRI cervical spine; multilevel discogenic degenerative change CT head without contrast no acute abnormalities Age-related chronic changes --Acute kidney injury Current Visit: Yes Status: Acute Secondary to dehydration .elevated BUN , normal creatinine Vasomotor Nephropathy/dehydration Completely resolved, monitor renal function Continue gentle hydration -- Hyponatremia Current Visit: Yes Status: Acute Present on admission, significantly improved Closely monitor electrolytes -- COPD (chronic obstructive pulmonary disease) Current Visit: Yes Status: Chronic Nebulizer treatments on a as needed basis Oxygen as needed. titrate O2 sats to more than 90% --BPH (benign prostatic hyperplasia) Current Visit: Yes Status: Chronic Continue tamsulosin, supportive care -- Hyperlipidemia Current Visit: Yes Status: Chronic Continue statins -- superficial wounds; Current Visit: Yes Status: Chronic Consult wound care, wound cultures if needed --Full CODE STATUS --DVT prophylaxis Current Visit: Yes Status: Acute Subcu Lovenox and GI prophylaxis Discharge planning; family decided on LTAC placement Case management is assisting with discharge planning Plan of care discussed with patient's son Dr. Herrera. 75-year-old male patient with multiple medical problems was admitted through emergency room with altered level of consciousness Patient was appropriately managed evaluated by neurology had extensive negative neuro work-up Received PT OT speech therapy, recommended LTAC placement, DC planning per case management Patient is hemodynamically and clinically stable for discharge and LTAC placement when set up 03/08/2021; patient is more alert and awake responding appropriately No distress, no confusion or agitation, neurology evaluation noted Neuro work-up is in progress 03/09/2021; Nurse reports that patient is little agitated and confused this morning MRI brain, MRI neck scheduled for today Neurology following 03/10/2021; Pending PT OT evaluation DC planning Case management 03/11/2021: PT still working on the patient Pending LTAC placement 03/12/2021; Clinically no change Awaiting LTAC placement History Interval history: I seen and examined the patient at the bedside this morning Hospitalist Physical - Constitutional Vitals: Temp Pulse Resp BP Pulse Ox 98.6 F 68 20 126/62 99 03/12/21 16:00 03/12/21 16:00 03/12/21 16:00 03/12/21 16:00 03/12/21 16:00 General appearance: Present: no acute distress, well-nourished, other (Patient is upset and agitated) - EENT Eyes: Present: PERRL, EOM intact - Neck Neck: Present: supple, normal ROM - Respiratory Respiratory effort: normal Respiratory: bilateral: diminished, negative: rales, rhonchi, wheezing - Cardiovascular Rhythm: regular Heart Sounds: Present: S1 & S2 - Extremities Extremities: no ischemia, No edema - Abdominal General gastrointestinal: soft, non-tender, non-distended, normal bowel sounds - Integumentary Integumentary: Present: clear, warm - Psychiatric Psychiatric: appropriate mood/affect, cooperative - Neurologic Neurologic: CNII-XII intact, moves all extremities HEART Score - HEART Score Troponin: Troponin T 0.071 ng/mL (0.00-0.029) H 03/07/21 12:10 Results - Labs CBC & Chem 7: 03/12/21 05:11 03/12/21 05:11 Labs: Laboratory Last Values WBC 8.6 K/mm3 (4.5-11.0) 03/12/21 05:11 RBC 4.03 M/mm3 (3.65-5.03) 03/12/21 05:11 Hgb 9.8 gm/dl (11.8-15.2) L 03/12/21 05:11 Hct 30.6 % (35.5-45.6) L 03/12/21 05:11 MCV 76 fl (84-94) L 03/12/21 05:11 MCH 24 pg (28-32) L 03/12/21 05:11 MCHC 32 % (32-34) 03/12/21 05:11 RDW 20.9 % (13.2-15.2) H 03/12/21 05:11 Plt Count 353 K/mm3 (140-440) 03/12/21 05:11 Lymph % (Auto) 20.3 % (13.4-35.0) 03/12/21 05:11 [place] % (Auto) 11.7 % (0.0-7.3) H 03/12/21 05:11 Eos % (Auto) 6.8 % (0.0-4.3) H 03/12/21 05:11 Baso % (Auto) 0.6 % (0.0-1.8) 03/12/21 05:11 Lymph # (Auto) 1.7 K/mm3 (1.2-5.4) 03/12/21 05:11 [place] # (Auto) 1.0 K/mm3 (0.0-0.8) H 03/12/21 05:11 Eos # (Auto) 0.6 K/mm3 (0.0-0.4) H 03/12/21 05:11 Baso # (Auto) 0.1 K/mm3 (0.0-0.1) 03/12/21 05:11 Seg Neutrophils % 60.6 % (40.0-70.0) 03/12/21 05:11 Seg Neutrophils # 5.2 K/mm3 (1.8-7.7) 03/12/21 05:11 PT 13.6 Sec. (12.2-14.9) 03/07/21 12:10 INR 0.99 (0.87-1.13) 03/07/21 12:10 APTT 33.8 Sec. (24.2-36.6) 03/07/21 12:10 Sodium 139 mmol/L (137-145) 03/12/21 05:11 Potassium 4.0 mmol/L (3.6-5.0) 03/12/21 05:11 Chloride 105.3 mmol/L (98-107) 03/12/21 05:11 Carbon Dioxide 23 mmol/L (22-30) 03/12/21 05:11 Anion Gap 15 mmol/L 03/12/21 05:11 BUN 16 mg/dL (9-20) 03/12/21 05:11 Creatinine 0.8 mg/dL (0.8-1.3) 03/12/21 05:11 Estimated GFR > 60 ml/min 03/12/21 05:11 BUN/Creatinine Ratio 20 % 03/12/21 05:11 Glucose 127 mg/dL (75-100) H 03/12/21 05:11 POC Glucose 130 mg/dL (70-105) H 03/10/21 06:23 Hemoglobin A1c 6.8 % (4-6) H 03/08/21 04:42 Lactic Acid 1.80 mmol/L (0.7-2.0) 03/07/21 12:10 Calcium 8.5 mg/dL (8.4-10.2) 03/12/21 05:11 Total Bilirubin 0.60 mg/dL (0.1-1.2) 03/08/21 04:42 AST 20 units/L (5-40) 03/08/21 04:42 ALT 23 units/L (7-56) 03/08/21 04:42 Alkaline Phosphatase 97 units/L (35-129) 03/08/21 04:42 Ammonia 13.0 umol/L (25-60) L 03/07/21 12:10 Troponin T 0.071 ng/mL (0.00-0.029) H 03/07/21 12:10 Total Protein 8.0 g/dL (6.3-8.2) 03/08/21 04:42 Albumin 2.9 g/dL (3.9-5) L 03/08/21 04:42 Albumin/Globulin Ratio 0.6 % 03/08/21 04:42 Triglycerides 103 mg/dL (2-149) 03/07/21 12:10 Cholesterol 71 mg/dL (50-199) 03/07/21 12:10 LDL Cholesterol Direct 36 mg/dL (50-130) L 03/07/21 12:10 HDL Cholesterol 26 mg/dL (40-59) L 03/07/21 12:10 Cholesterol/HDL Ratio 2.73 % 03/07/21 12:10 Urine Color Yellow (Yellow) 03/07/21 Unknown Urine Turbidity Slightly-cloudy (Clear) 03/07/21 Unknown Urine pH 7.0 (5.0-7.0) 03/07/21 Unknown Ur Specific [place] 1.016 (1.003-1.030) 03/07/21 Unknown Urine Protein 30 mg/dl mg/dL (Negative) 03/07/21 Unknown Urine Glucose (UA) Neg mg/dL (Negative) 03/07/21 Unknown Urine Ketones Neg mg/dL (Negative) 03/07/21 Unknown Urine Blood Neg (Negative) 03/07/21 Unknown Urine Nitrite Pos (Negative) 03/07/21 Unknown Urine Bilirubin Neg (Negative) 03/07/21 Unknown Urine Urobilinogen < 2.0 mg/dL (<2.0) 03/07/21 Unknown Ur Leukocyte Esterase Lg (Negative) 03/07/21 Unknown Urine WBC (Auto) 29.0 /HPF (0.0-6.0) H 03/07/21 Unknown Urine RBC (Auto) 9.0 /HPF (0.0-6.0) 03/07/21 Unknown Urine Bacteria (Auto) 1+ /HPF (Negative) 03/07/21 Unknown Urine Mucus Few /HPF 03/07/21 Unknown [place]/IV: Voiding Method Indwelling Catheter Active Medications - Current Medications Current Medications: Generic Name Dose Route Start Last Admin Trade Name Freq PRN Reason Stop Dose Admin Acetaminophen 650 mg 03/07/21 16:01 Acetaminophen 325 Mg/10.15 Ml Oral Liqd Unit Dose FEEDTUBE Q4H PRN Pain, Mild (1-3) Albuterol 2.5 mg 03/08/21 12:00 Albuterol 2.5 Mg/3 Ml Nebu IH Q4HRT PRN Shortness Of Breath Allopurinol 100 mg 03/08/21 10:00 03/12/21 10:23 Allopurinol 100 Mg Tab FEEDTUBE 100 mg QDAY DIXIE Administration Lipase/Protease/Amylase 1 each 03/10/21 12:30 Lipase 10,500/Protease 25,000/Amylase 43,750 (Units) Dr Kuo FEEDTUBE PRN PRN For Clogged Feeding Tube Atorvastatin Calcium 40 mg 03/08/21 22:00 03/11/21 21:13 Atorvastatin 40 Mg Tab PO 40 mg QHS DIXIE Administration Enoxaparin Sodium 40 mg 03/08/21 10:00 03/12/21 10:23 Enoxaparin 40 Mg/0.4 Ml Inj SUB-Q 40 mg QDAY@1000 DIXIE Administration Fluticasone Propionate 50 mcg 03/08/21 10:00 03/12/21 10:24 Fluticasone Propionate Nasal [place] 16 Gm NS 50 mcg BID DIXIE Administration Hydromorphone HCl 0.5 mg 03/07/21 15:27 Hydromorphone 1 Mg/1 Ml Inj IV Q3H PRN Pain , Severe (7-10) Dextrose/Sodium Chloride 1,000 mls @ 75 mls/hr 03/07/21 16:00 03/11/21 05:53 D5ns IV 75 mls/hr DIRECT DIXIE Administration Ceftriaxone Sodium 1 gm in 50 mls @ 100 mls/hr 03/07/21 17:00 03/11/21 18:55 Rocephin/Ns 1 Gm/50 Ml IV 03/13/21 17:29 100 mls/hr Q24H DIXIE Administration Protocol Lactobacillus Acidophilus 1 each 03/09/21 11:00 03/12/21 10:23 Floranex Granule Packet FEEDTUBE 1 each DAILY DIXIE Administration Lansoprazole 30 mg 03/09/21 11:00 03/12/21 10:23 Lansoprazole 30 Mg Solutab FEEDTUBE 30 mg QDAY DIXIE Administration Melatonin 5 mg 03/08/21 22:00 03/10/21 22:09 Melatonin 5 Mg Tab PO 5 mg QHS PRN Administration Insomnia Metoclopramide HCl 10 mg 03/07/21 15:27 03/07/21 23:02 Metoclopramide 10 Mg/2 Ml Inj IV 10 mg Q6H PRN Administration Nausea And Vomiting Ondansetron HCl 4 mg 03/07/21 15:27 Ondansetron 4 Mg/2 Ml Inj IV Q8H PRN Nausea And Vomiting Oxycodone/Acetaminophen 1 tab 03/07/21 16:00 03/11/21 10:58 Oxycodone /Acetaminophen 5-325mg Tab FEEDTUBE 1 tab Q6H PRN Administration Pain, Moderate (4-6) Polyethylene Glycol 17 gm 03/08/21 10:00 Polyethylene Glycol 3350 17 Gm Powder PO QDAY PRN Constipation Simple Syrup 15 ml 03/10/21 12:30 Simple Syrup 15 Ml FEEDTUBE PRN PRN Hypoglycemia Simple Syrup 30 ml 03/10/21 12:30 Simple Syrup 15 Ml FEEDTUBE PRN PRN Hypoglycemia Sodium Bicarbonate 325 mg 03/10/21 12:30 Sodium Bicarbonate 325 Mg Tab FEEDTUBE PRN PRN For Clogged Feeding Tube Sodium Chloride 10 ml 03/07/21 22:00 03/12/21 10:22 Sodium Chloride 0.9% 10 Ml Flush Syringe IV 10 ml BID DIXIE Administration Sodium Chloride 10 ml 03/07/21 15:27 Sodium Chloride 0.9% 10 Ml Flush Syringe IV PRN PRN LINE FLUSH Tamsulosin HCl 0.4 mg 03/08/21 22:00 03/11/21 21:13 Tamsulosin 0.4 Mg Cap PO 0.4 mg QHS DIXIE Administration Nutrition/Malnutrition Assess - Dietary Evaluation Nutrition/Malnutrition Findings: Nutrition Notes Start: 03/08/21 12:33 Freq: Status: Active Protocol: Document 03/08/21 12:33 NAKUL (Rec: 03/08/21 12:58 NAKUL [id number]) Nutrition Notes Need for Assessment generated from: MD Order Initial or Follow up Assessment Other Pertinent Diagnosis Encephalopaty, Altered mental status Current Diet Cardiac diet (since D 03/07); suspended for Tube Feeding ( since D 03/09) Labs/Tests 03/08: BUN 35. Pertinent Medications 03/08: Reviewed. Height 6 ft 2 in Weight 111.6 kg [place] Body Weight (kg) 86.36 BMI 31.6 Weight Status Overweight Subjective/Other Information At the time no available information on acceptance of food, % of meals intake, nor BM. Percent of energy/protein needs met: Prescribed Tube Feeding provides for 80.7% of energy/ protein nedds (1,800Kcal/ 90g) during LOS. Burn Absent Trauma Absent GI Symptoms None Food Allergy No Skin Integrity/Comment Integumentary; clear,warm,dry. #1 Nutrition Diagnosis No nutrition diagnosis at this time Comments: MD ordered Tube Feeding Is patient on ventilator? No Is Patient Ambulatory and/or Out of Bed No REE-([facility]-confined to bed) 2298.948 Kcal/Kg value to use for calculation 20 Approximate Energy Requirements Using 2232 kcal/Kg Calculation Used for Recommendations Kcal/kg Additional Notes Protein: 0.8-1.0 g/Kg/day; 69- 86 g/day; 276-344 Kcal/day ( from IBW). Fluids: 1.0 ml/Kcal, or as per MD. Nutrition Intervention Change Diet Order: Stop Cardiac Diet as per MD. Nutrition Support: Start Glucerna1.2 (1500 ml @ 63 ml/h) Flush: 170 ml Q 4hrs. = 1,022 ml Kcal 1,800 Protein (gm) 90 Carbohydrates (gm) 172 Fat (gm) 90 Fluid (mL) 1,208 Fiber (gm) 24 % RDI: 80.7 Goal #1 Maintain pt body weight within +/-3% of actual BWt during LOS. Goal #2 Reach and maintain acceptable chemistry lab values during LOS. Follow-Up By: 03/13/21 Additional Comments Per MD Tube Feeding has been set to Glucerna 1.2 @ 36 ml/hr . Rate adjusted @ 63 ml/hr. Continue monitoring tolerance to Tube Feeding, hydration, and BM.
[2021-03-12] MEDS: cefTRIAXone/NS 1 GM/50 ML 1 GM/50 ML BAG IV SCH (17:06)
[2021-03-12] MEDS: D5W/0.9% NACL 1,000 ML IV SCH (19:03)
[2021-03-12] MEDS: TAMSULOSIN 0.4 MG CAP PO SCH (21:07)
[2021-03-13 06:14] LABS: Basophils % (Auto) 0.5 % (0.0-1.8); Eosinophils # (Auto) 0.9 K/mm3 (0.0-0.4); Eosinophils % (Auto) 11.5 % (0.0-4.3); Hematocrit 30.1 % (35.5-45.6); Hemoglobin 9.8 gm/dl (11.8-15.2); Lymphocytes # (Auto) 1.8 K/mm3 (1.2-5.4); Lymphocytes % (Auto) 23.6 % (13.4-35.0); Mean Corpuscular HGB Conc 33 % (32-34); Mean Corpuscular Volume 77 fl (84-94); Monocytes # (Auto) 0.9 K/mm3 (0.0-0.8); Monocytes % (Auto) 12.5 % (0.0-7.3); Platelet Count 345 K/mm3 (140-440); Red Blood Count 3.93 M/mm3 (3.65-5.03)
[2021-03-13 06:18] LABS: Red Cell Distribution Width 21.1 % (13.2-15.2)
[2021-03-13 06:31] LABS: BUN/Creatinine Ratio 20; Blood Urea Nitrogen 16 mg/dL (9-20); Calcium 8.6 mg/dL (8.4-10.2); Hemolysis Index 2
[2021-03-13] MEDS: LANSOPRAZOLE 30 MG SOLUTAB FEEDTUBE SCH (11:47)
[2021-03-13] MEDS: ENOXAPARIN 40 MG/0.4 ML INJ SUB-Q SCH (11:47)
[2021-03-13] MEDS: allopurinoL 100 MG TAB FEEDTUBE SCH (11:47)
[2021-03-13] MEDS: FLORANEX GRANULE PACKET FEEDTUBE SCH (11:48)
[2021-03-13] MEDS: FLUTICASONE PROPIONATE NASAL SPRAY 16 GM NS SCH (11:49)
[2021-03-13] MEDS ORDERED: LIPASE 10,500/PROTEASE 25,000/AMYLASE 43,750 (UNITS) DR CAP FEEDTUBE PRN (13:37)
[2021-03-13] MEDS ORDERED: SIMPLE SYRUP 15 ML FEEDTUBE PRN ×2 (13:37)
[2021-03-13] MEDS ORDERED: SODIUM BICARBONATE 325 MG TAB FEEDTUBE PRN (13:37)
--- NOTE | 2021-03-13 14:20 | Discharge Summary ---
Providers - Providers Date of Admission: 03/08/21 14:53 Date of discharge: 03/13/21 Attending physician: ERIKA CRESPO 03/07/21 23:37 Consult to Dietitian/Nutrition [CONS] Routine Physician Instructions: Reason For Exam: Reason for Consult: Write/Manage Tube Feeding Physical Therapy Evaluation and Treat [CONS] Routine Comment: Reason For Exam: deconditioning Speech Therapy Evaluation and Treat [CONS] Routine Reason For Exam: swallow eval 03/07/21 23:43 Consult to Physician [CONS] Routine Comment: Consulting Provider: JAKE MCBRIDE Physician Instructions: Reason For Exam: encephalopathy 03/08/21 00:43 Consult to Wound/ET Nurse [CONS] Stat Reason For Exam: wound eval 03/08/21 17:01 Speech Therapy Evaluation and Treat [CONS] Routine Reason For Exam: to resume treatment following swallowing eval 03/08/21 18:23 Consult to Dietitian/Nutrition [CONS] Routine Physician Instructions: Assess nutrtn needs, initiate, modify, manage TF Reason For Exam: Reason for Consult: Write/Manage Tube Feeding Reason for Consult: Write/Manage Tube Feeding 03/10/21 12:00 Consult to Wound/ET Nurse [CONS] Routine Reason For Exam: wound eval Primary care physician: DRYWALL SANDER Hospitalization Reason for admission: Acute metabolic encephalopathy/worsening shortness of breath Condition: Stable Pertinent studies: Tests reports; MRI brain 03/08 without; mild to moderate microvascular angiopathy and cerebral atrophy no evidence of infarction Brain MRI with contrast; 03/09; no acute infarction no acute findings senescent changes MRI cervical spine; multilevel discogenic degenerative change CT head without contrast no acute abnormalities Age-related chronic changes Hospital course: 75-year-old male patient with significant past medical history of COPD hypertension dyslipidemia BPH allergic rhinitis was admitted through emergency room with altered level of consciousness and metabolic encephalopathy, and worsening shortness of breath. Patient's mental status was more altered last 4 days prior to the admission. Was slightly confused. Initial evaluation with CT head without contrast did not show any acute abnormality only age-related changes. Patient had leukocytosis and urinary tract infection for which he received 5 days of antibiotics. Neurology evaluated and had extensive neuro work-up as mentioned above which was negative for acute findings Patient was evaluated by both physical therapy and Occupational Therapy, Case management has set up for LTAC placement. Patient symptoms slowly but gradually improved, still he is confused intermittently, speech and swallow has evaluated the patient, and recommended pured diet which was given to him as tolerated, patient already has a PEG tube and received tube feeding intermittently. Today patient is comfortable, no new complaints, vital signs reviewed Physical examination prior to discharge did not show any new findings, patient is back to his baseline status Hemodynamically and clinically stable at discharge and transfer to LTAC Discharge diagnosis: -- Acute metabolic encephalopathy Current Visit: Yes Status: Acute Evaluated by neurologist had extensive neuro work-up Patient symptoms significantly improved Back to baseline mild confusion Tests reports; MRI brain 03/08 without; mild to moderate microvascular angiopathy and cerebral atrophy no evidence of infarction Brain MRI with contrast; 03/09; no acute infarction no acute findings senescent changes MRI cervical spine; multilevel discogenic degenerative change CT head without contrast no acute abnormalities Age-related chronic changes --Acute kidney injury Current Visit: Yes Status: Acute Secondary to dehydration .elevated BUN , normal creatinine Resolved, encourage fluid intake oral/tube feeding -- Hyponatremia Current Visit: Yes Status: Acute Resolved -- COPD (chronic obstructive pulmonary disease) Current Visit: Yes Status: Chronic Nebulizer treatments on a as needed basis Well compensated, O2 as needed --BPH (benign prostatic hyperplasia) Current Visit: Yes Status: Chronic Continue tamsulosin, supportive care -- Hyperlipidemia Current Visit: Yes Status: Chronic Continue statins -- superficial wounds; Current Visit: Yes Status: Chronic Wound care as needed --Full CODE STATUS --DVT/GI prophylaxis Current Visit: Yes Status: Acute Subcu Lovenox and Prevacid Hemodynamically and clinically stable at discharge Disposition: [facility] Final Discharge Diagnosis (Prints w/discharge instructions): Acute encephalopathy. 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 Acute kidney injury/resolved. Hyponatremia/resolved. COPD/well compensated. Benign prostatic hyperplasia. Hyperlipidemia. Superficial wounds. Full CODE STATUS Time spent for discharge: 45 min Core Measure Documentation - Palliative Care Palliative Care/ Comfort Measures: Not Applicable - Core Measures Any of the following diagnoses?: none Exam - Constitutional Vitals: Temp Pulse Resp BP Pulse Ox 98.4 F 83 18 127/65 97 03/13/21 08:40 03/13/21 08:40 03/13/21 08:40 03/13/21 08:40 03/13/21 08:40 General appearance: Present: no acute distress, well-nourished, other (Confused at times) - EENT Eyes: Present: PERRL, EOM intact - Neck Neck: Present: supple, normal ROM - Respiratory Respiratory effort: normal Respiratory: bilateral: diminished, negative: rales, rhonchi, wheezing - Cardiovascular Rhythm: regular Heart Sounds: Present: S1 & S2 - Extremities Extremities: no ischemia, No edema - Abdominal General gastrointestinal: Present: soft, non-tender, non-distended - Integumentary Integumentary: Present: clear, warm - Musculoskeletal Musculoskeletal: generalized weakness - Psychiatric Psychiatric: appropriate mood/affect, other (Confused at times) - Neurologic Neurologic: moves all extremities Plan Activity: advance as tolerated, fall precautions Diet: other (Pured diet as tolerated/tube feeding) Wound: per wound nurse instructions Additional Instructions: Fall precautions. Aspiration precautions. Wound care as needed. Tube feeding/pured diet as tolerated. Advised to follow primary care physician Dr. Jose Moseley 1 week after discharge from LTAC. Follow-up with neurologist Dr. Saavedra 2 weeks after discharge from LTAC Follow up with: JOSE MOSELEY MD [Staff Physician] - 7 Days RASHID SAAVEDRA MD [Staff Physician] - 14 Days PRIMARY CARE, [Primary Care Provider] - 3-5 Days
[2021-03-13 19:50] VITALS: BP 133/67
== END 2021-03-13 20:30 | DRG 71 ==
LOC: ED 11:38 → 4A 13:39 → OBSVTOIN 03-08 14:53
PROVIDERS: ADMIT Internal Medicine; ATTEND Internal Medicine
DX: G93.41 Metabolic encephalopathy (principal); E87.1 Hypo-osmolality and hyponatremia; N17.9 Acute kidney failure, unspecified; E86.0 Dehydration; J44.9 Chronic obstructive pulmonary disease, unspecified; E78.5 Hyperlipidemia, unspecified; N40.0 Benign prostatic hyperplasia without lower urinary tract symptoms; Z82.49 Family history of ischemic heart disease and other diseases of the circulatory system
CPT/HCPCS: 36415; 70450; 70551; 70552; 70553; 71045; 72141; 74230; 80048; 80053; 80061; 81001; 82140; 82962; 83036; 84484; 85025; 85610; 85730; 87086; 93005; G0378; A9575; J0696; J1650; J2765; J7030; J7042